=== PATIENT | male | born 1945 | race Caucasian/White ===

== ENCOUNTER 2016-09-04 19:51 | Emergency (ER) | payer MEDICARE ==
[2016-09-04 20:02] VITALS: BP 124/69; PULSE 63; RESP 18; TEMP 97.4
--- NOTE | 2016-09-04 21:00 | ED ---
Fall HPI - General Chief Complaint: Fall Stated Complaint: Dr. Muhammad-US on legs Time Seen by Provider: 09/04/16 20:09 Source: patient, RN notes reviewed Mode of arrival: ambulatory - History of Present Illness Initial Comments: Patient is a 71-year-old male presents emergency room for evaluation of left hip pain, swelling and bruising. Patient states on he was on bleachers in [facility] and slipped and fell landing on his left side. 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 Patient states that he noticed bruising and swelling on the posterior portion of his upper leg. Patient does state that he is on Coumadin for the past 3 months. Patient states he went to [facility] and advised that he come to the emergency room for further evaluation. Patient states he has pain whenever he walks or moves his left hip. Patient says he numbness or tingling in his toes. Patient states he noticed swelling in his left foot. Patient denies any significant pain going down his leg besides his hip. Patient denies any other injuries during incident. - Related Data Home Medications Medication Instructions Recorded Confirmed Aspirin 81 mg PO DAILY 12/17/13 01/02/14 Atorvastatin Calcium [Lipitor] 5 mg PO DAILY 12/17/13 01/02/14 Furosemide [Lasix] 40 mg PO DIRECTED 12/17/13 01/02/14 Lisinopril [Prinivil] 10 mg PO DAILY 12/17/13 01/02/14 Metoprolol Tartrate [Lopressor] 25 mg PO BID 12/17/13 01/02/14 Sotalol HCl [Sotalol] 160 mg PO BID 12/17/13 01/02/14 Spironolactone [Aldactone] 25 mg PO DAILY 12/17/13 01/02/14 Previous Rx's Medication Instructions Recorded Cephalexin [Keflex] 500 mg PO Q6HR #40 cap 01/02/14 Hydrocodone/Acetaminophen 1 each PO Q4HR PRN #20 tablet 01/02/14 [Hydrocodone/Acetaminophen 5-325] Indomethacin [Indocin] 50 mg PO ONCE #24 capsule 01/02/14 HYDROcodone/APAP 5-325MG [[place] 1 tab PO Q6HR PRN #12 tab 09/04/16 5-325] Allergies Allergy/AdvReac Type Severity Reaction Status Date / Time No Known Allergies Allergy Verified 09/04/16 20:03 Review of Systems ROS Statement: Those systems with pertinent positive or pertinent negative responses have been documented in the HPI. ROS Other: All systems not noted in ROS Statement are negative. Past Medical History Past Medical History: Cancer, Heart Failure Additional Past Medical History / Comment(s): SKIN CA, SEE DR GEE H&P History of Any Multi-Drug Resistant Organisms: None Reported Past Surgical History: Heart Catheterization, Orthopedic Surgery Additional Past Surgical History / Comment(s): PYLORIC STENOSIS REPAIR, Past Anesthesia/Blood Transfusion Reactions: No Reported Reaction Type of Cardiac Device: Unknown Device Placement Date:: UNKNOWN Past Psychological History: No Psychological Hx Reported Smoking Status: Former smoker Past Alcohol Use History: Rare Past Drug Use History: None Reported General Exam - General Exam Comments Initial Comments: Sitting in exam room in no acute distress. Limitations: no limitations General appearance: alert, in no apparent distress Head exam: Present: atraumatic, normocephalic, normal inspection Eye exam: Present: normal appearance ENT exam: Present: normal exam Neck exam: Present: normal inspection Respiratory exam: Present: normal lung sounds bilaterally. Absent: respiratory distress Cardiovascular Exam: Present: regular rate, normal rhythm, normal heart sounds Left Hip exam: Present: swelling, ecchymosis (Swelling and ecchymosis on lateral hip/ proximal lateral femur.) Upper Leg exam: Present: ecchymosis (Mild amount of ecchymosis of lateral upper leg) Knee exam: Present: normal inspection, full ROM. Absent: tenderness Lower Leg exam: Present: normal inspection, full ROM. Absent: tenderness Ankle exam: Present: normal inspection, full ROM. Absent: tenderness Foot/Toe exam: Present: swelling Neurovascular tendon exam: Present: no vascular compromise. Absent: pulse deficit (2+ dorsal pedal and posterior tibial pulses), abnormal cap refill ( Capillary refill less than 2 seconds) Back exam: Present: normal inspection Neurological exam: Present: alert, oriented X3, CN II-XII intact Psychiatric exam: Present: normal affect, normal mood Skin exam: Present: warm, dry. Absent: rash Course Vital Signs 09/04/16 19:53 Temperature 97.4 F L Pulse Rate 63 Respiratory 18 Rate Blood Pressure 124/69 O2 Sat by Pulse 98 Oximetry Medical Decision Making - Medical Decision Making Patient is a 71-year-old male presents emergency room for evaluation of fall injury on left hip. Patient does have ecchymosis noted on the lateral side of the proximal upper leg. X-rays show no acute findings. Left lower extremity venous Doppler negative for DVT. Patient will be sent home with pain medications and advised to follow-up with primary care provider for reevaluation. Advised patient to continue elevating leg. Patient states he understands everything that was discussed with him. Return parameters discussed. Case discussed with Dr. Hernandez. - Radiology Data Radiology results: report reviewed, image reviewed Disposition Clinical Impression: Contusion of left hip, Fall Disposition: HOME SELF-CARE Condition: Good Instructions: Hip Contusion (ED) Additional Instructions: Take pain medications as needed. Please follow up with primary care provider in 24-48 hours for reevaluation. Elevate left leg as much as possible. Apply ice 20 minutes on and off. If any new symptom arises or symptoms worsen, return to ER as soon as possible. Prescriptions: HYDROcodone/APAP 5-325MG [[place] 5-325] 1 tab PO Q6HR PRN #12 tab PRN Reason: Pain Referrals: Cherise Duran MD [Primary Care Provider] - 1-2 days Time of Disposition: 22:28
--- NOTE | 2016-09-04 21:24 | XR ---
EXAMINATION TYPE: XR femur LT DATE OF EXAM: 09/04/2016 9:12 PM COMPARISON: NONE HISTORY: Pain TECHNIQUE: 3 views FINDINGS: I see no fracture nor dislocation. Hip joint and knee joint are intact. There is spurring a t the medial and lateral joint spaces of the knee. IMPRESSION: No fracture. Mild osteoarthritis in the knee joint.
--- NOTE | 2016-09-04 21:25 | XR ---
EXAMINATION TYPE: XR Hip Complete LT DATE OF EXAM: 09/04/2016 9:12 PM COMPARISON: NONE HISTORY: Fall TECHNIQUE: 2 views FINDINGS: AP and frog-leg views show no fracture nor dislocation. Hip joint spaces are fairly normal. Sacroiliac joint is normal. IMPRESSION: Negative left hip exam.
--- NOTE | 2016-09-04 21:55 | US ---
EXAMINATION TYPE: US venous doppler duplex LE LT DATE OF EXAM: 09/04/2016 9:50 PM COMPARISON: NONE CLINICAL HISTORY: Pain. Patient tripped x4 days ago. Pain and bruising left leg SIDE PERFORMED: Left VESSELS IMAGED: External Iliac Vein (EIV) Common Femoral Vein Deep Femoral Vein Greater Saphenous Vein * Femoral Vein Popliteal Vein Small Saphenous Vein * Proximal Calf Veins (* superficial vessels) TECHNOLOGIST IMPRESSION: Left Leg: Negative for DVT IMPRESSION: Normal exam. No evidence of deep venous thrombosis in the left leg.
[2016-09-04] MEDS ORDERED: HYDROcodone/APAP 5-325MG 1 EACH TAB PO STA (22:15)
== END 2016-09-04 22:48 | disposition home or self-care (01) ==
LOC: EC 19:51
DX: S70.02XA Contusion of left hip, initial encounter (principal); W10.9XXA Fall (on) (from) unspecified stairs and steps, initial encounter; I50.9 Heart failure, unspecified; Y92.89 Other specified places as the place of occurrence of the external cause; Z79.01 Long term (current) use of anticoagulants; M19.072 Primary osteoarthritis, left ankle and foot; Z79.82 Long term (current) use of aspirin; Z79.899 Other long term (current) drug therapy; Z85.828 Personal history of other malignant neoplasm of skin
CPT/HCPCS: 73502; 99284

== ENCOUNTER 2017-04-01 14:17 | Emergency (ER) | payer MEDICARE ==
[2017-04-01 14:59] VITALS: BP 110/63; PULSE 65; RESP 18; TEMP 98.2
[2017-04-01] MEDS ORDERED: GELATIN SPONGE,ABSORB (SMALL) 1 EACH SPONGE TOPICAL STA (16:12)
[2017-04-01] MEDS ORDERED: ceFAZolin 1,000 MG VIAL IM STA (16:34)
--- NOTE | 2017-04-01 16:41 | ED ---
Medical Decision Making - Medical Decision Making The patient causing extensive laceration on the dorsal surface of his nondominant left thumb. Laceration extends from the MCP joint to the area just below the thumb nail. This does appear to involve the extensor tendon. The patient is on Coumadin. Pressure was applied and Gelfoam was used to control the bleeding. The case discussed with Dr. Jovanny aguiar PHYSICIAN'S assistant education director on -call. The plant this size for the patient to follow up in office tomorrow to call at 8 AM. Nothing by mouth after midnight. He'll receive in the emergency room 1 g of Ancef area he'll be on oral Keflex afterwards. Advised not to take his Coumadin tonight or tomorrow morning when he normally takes it. The wound has been cleaned will be dressed, due to the extensor tendon injury the wound will be loosely approximated with bandages but not sutured closed. This be done by the hand surgeon after evaluation. Dr. Wagner Disposition Clinical Impression: Laceration Disposition: HOME SELF-CARE Condition: Good Instructions: Laceration Without Closure (ED) Additional Instructions: Keep thumb wrapped. Elevate right arm as much as possible. Continue pain medication as prescribed as needed for pain. Continue Keflex 500 mg 4 times daily for [address] Jassi Victoria at 8 AM tomorrow for further instructions. Please refrain from taking Coumadin today or tomorrow. Please return to the emergency department with any new or worsening symptoms such as uncontrolled bleeding, fevers, nausea, vomiting, dizziness, weakness, or increased pain. Prescriptions: Cephalexin [Keflex] 500 mg PO Q6HR #28 cap HYDROcodone/APAP 5-325MG [[place] 5-325] 1 tab PO Q4HR PRN #20 tab PRN Reason: Pain Referrals: Frank Cole DO [Doctor of Osteopathic Medicine] - 1-2 days (Call at 8 AM on 04/02/2017) Elpidio Scott DO [Primary Care Provider] - 1-2 days
[2017-04-01] MEDS ORDERED: HYDROcodone/APAP 5-325MG 1 EACH TAB PO STA (17:04)
--- NOTE | 2017-04-01 17:04 | ED ---
Wound/Laceration HPI - General Chief Complaint: Wound/Laceration Stated Complaint: Thumb Injury Time Seen by Provider: 04/01/17 16:12 Source: patient Mode of arrival: ambulatory Limitations: no limitations - History of Present Illness Initial Comments: Patient is a right-handed 71-year-old male with past medical history significant for congestive heart failure and permanent pacemaker implantation anticoagulated with Coumadin, presenting to the emergency department with chief complaint of left dorsal thumb laceration. Patient states he was out shooting with his crossbow when the string snapped back and lacerated his thumb. Onset of injury approximately one hour prior to arrival. Patient is currently complaining of a throbbing pain rated 7 out of 10. Patient denies numbness or tingling. Patient denies recent illness, fevers, nausea, vomiting, shortness of breath, chest pain, or abdominal pain. Patient denies weakness or dizziness. Patient denies any other injuries. Patient Tetanus UTD: Yes Context: accidental Associated Symptoms: pain Treatments Prior to Arrival: bandage - Related Data Home Medications Medication Instructions Recorded Confirmed Aspirin 81 mg PO DAILY 12/17/13 01/02/14 Atorvastatin Calcium [Lipitor] 5 mg PO DAILY 12/17/13 01/02/14 Furosemide [Lasix] 40 mg PO DIRECTED 12/17/13 01/02/14 Lisinopril [Prinivil] 10 mg PO DAILY 12/17/13 01/02/14 Metoprolol Tartrate [Lopressor] 25 mg PO BID 12/17/13 01/02/14 Sotalol HCl [Sotalol] 160 mg PO BID 12/17/13 01/02/14 Spironolactone [Aldactone] 25 mg PO DAILY 12/17/13 01/02/14 Previous Rx's Medication Instructions Recorded Cephalexin [Keflex] 500 mg PO Q6HR #40 cap 01/02/14 Hydrocodone/Acetaminophen 1 each PO Q4HR PRN #20 tablet 01/02/14 [Hydrocodone/Acetaminophen 5-325] Indomethacin [Indocin] 50 mg PO ONCE #24 capsule 01/02/14 HYDROcodone/APAP 5-325MG [[place] 1 tab PO Q6HR PRN #12 tab 09/04/16 5-325] Cephalexin [Keflex] 500 mg PO Q6HR #28 cap 04/01/17 HYDROcodone/APAP 5-325MG [[place] 1 tab PO Q4HR PRN #20 tab 04/01/17 5-325] Allergies Allergy/AdvReac Type Severity Reaction Status Date / Time No Known Allergies Allergy Verified 04/01/17 14:59 Review of Systems ROS Statement: Those systems with pertinent positive or pertinent negative responses have been documented in the HPI. ROS Other: All systems not noted in ROS Statement are negative. Past Medical History Past Medical History: Cancer, Heart Failure Additional Past Medical History / Comment(s): SKIN CA, SEE DR GEE H&P History of Any Multi-Drug Resistant Organisms: None Reported Past Surgical History: Heart Catheterization, Orthopedic Surgery Additional Past Surgical History / Comment(s): PYLORIC STENOSIS REPAIR, Past Anesthesia/Blood Transfusion Reactions: No Reported Reaction Type of Cardiac Device: Unknown Device Placement Date:: UNKNOWN Past Psychological History: No Psychological Hx Reported Smoking Status: Former smoker Past Alcohol Use History: Rare Past Drug Use History: None Reported General Exam Limitations: no limitations General appearance: alert, in no apparent distress Head exam: Present: atraumatic, normocephalic, normal inspection Eye exam: Present: normal appearance ENT exam: Present: normal exam, mucous membranes moist, normal external ear exam Neck exam: Present: normal inspection Respiratory exam: Present: normal lung sounds bilaterally. Absent: respiratory distress, wheezes, rales, rhonchi, chest wall tenderness Cardiovascular Exam: Present: regular rate, normal rhythm, normal heart sounds. Absent: systolic murmur GI/Abdominal exam: Present: soft, normal bowel sounds. Absent: distended, tenderness Left Forearm Wrist exam: Present: normal inspection, full ROM. Absent: tenderness, swelling Hand Wrist exam: Present: full ROM, tenderness, swelling, laceration ( Laceration extended from metatarsal joint to nailbed) Neuro motor exam: Present: wrist extension intact, thumb opposition intact, thumb IP flexion intact, thumb adduction intact, fingers 2-5 abduction intact Neurosensory exam: Present: 2-point discrimination, radial nerve intact, ulnar nerve intact, median nerve intact Vascular: Present: normal capillary refill, radial pulse, brachial pulse, ulnar pulse. Absent: vascular compromise Neurological exam: Present: alert, oriented X3, CN II-XII intact, normal gait. Absent: motor sensory deficit Psychiatric exam: Present: normal affect, normal mood Skin exam: Present: warm, dry, normal color Course Vital Signs 04/01/17 14:56 Temperature 98.2 F Pulse Rate 65 Respiratory 18 Rate Blood Pressure 110/63 O2 Sat by Pulse 93 L Oximetry Medical Decision Making - Medical Decision Making Please see Dr. Wagner's addendum. Disposition Clinical Impression: Laceration Disposition: HOME SELF-CARE Condition: Good Instructions: Laceration Without Closure (ED) Additional Instructions: Keep thumb wrapped. Elevate right arm as much as possible. Continue pain medication as prescribed as needed for pain. Continue Keflex 500 mg 4 times daily for [address] Jassi Victoria at 8 AM tomorrow for further instructions. Please refrain from taking Coumadin today or tomorrow. Please return to the emergency department with any new or worsening symptoms such as uncontrolled bleeding, fevers, nausea, vomiting, dizziness, weakness, or increased pain. Prescriptions: Cephalexin [Keflex] 500 mg PO Q6HR #28 cap HYDROcodone/APAP 5-325MG [[place] 5-325] 1 tab PO Q4HR PRN #20 tab PRN Reason: Pain Referrals: Elpidio Scott DO [Primary Care Provider] - 1-2 days Frank Cole DO [Doctor of Osteopathic Medicine] - 1-2 days (Call at 8 AM on 04/02/2017) Time of Disposition: 17:04
== END 2017-04-01 17:53 | disposition home or self-care (01) ==
LOC: EC 14:17
DX: S66.222A Laceration of extensor muscle, fascia and tendon of left thumb at wrist and hand level, initial encounter (principal); S61.012A Laceration without foreign body of left thumb without damage to nail, initial encounter; I50.9 Heart failure, unspecified; Z95.0 Presence of cardiac pacemaker; Z79.01 Long term (current) use of anticoagulants; Z79.82 Long term (current) use of aspirin; Z79.899 Other long term (current) drug therapy; Z87.891 Personal history of nicotine dependence; W21.89XA Striking against or struck by other sports equipment, initial encounter; Y93.89 Activity, other specified
CPT/HCPCS: 99282 ×2; 96372 ×2; J0690

== ENCOUNTER 2018-01-14 07:25 | Inpatient (IN) | payer MEDICARE ==
--- NOTE | 2018-01-14 07:46 | ED ---
General Adult HPI - General Chief complaint: Chest Pain Stated complaint: chest pain Time Seen by Provider: 01/14/18 07:32 Source: patient, RN notes reviewed, old records reviewed Mode of arrival: wheelchair Limitations: no limitations - History of Present Illness Initial comments: 72-year-old male presenting for evaluation of central chest pressure. Symptoms began proximally 6 hours prior to arrival. He describes central chest pressure , no significant pain. He does report some dyspnea while lying flat. He states he is asymptomatic while he is up and walking around. No exertional component to his symptoms. Denies radiating pain. Denies nausea vomiting. Denies diaphoresis. Patient does have history of cardiomyopathy and congestive heart failure. He is currently on Lasix every other day, sotalol, metoprolol, lisinopril, and Coumadin. Patient reports no known history of coronary artery disease. He has no coronary stenting. He does have an implantable defibrillator. Denies cough, denies fever or chills, denies abdominal pain nausea vomiting. Patient denies chest pain at the time my evaluation. - Related Data Home Medications Medication Instructions Recorded Confirmed Aspirin 81 mg PO DAILY 12/17/13 01/14/18 Atorvastatin Calcium [Lipitor] 5 mg PO DAILY 12/17/13 01/14/18 Furosemide [Lasix] 40 mg PO MOWEFR 12/17/13 01/14/18 Lisinopril [Prinivil] 10 mg PO DAILY 12/17/13 01/14/18 Metoprolol Tartrate [Lopressor] 25 mg PO BID 12/17/13 01/14/18 Sotalol HCl [Sotalol] 160 mg PO BID 12/17/13 01/14/18 Spironolactone [Aldactone] 25 mg PO DAILY 12/17/13 01/14/18 Warfarin [Coumadin] 2.5 mg PO MOWEFR 01/14/18 01/14/18 Warfarin [Coumadin] 5 mg PO SUTUTHSA 01/14/18 01/14/18 Allergies Allergy/AdvReac Type Severity Reaction Status Date / Time No Known Allergies Allergy Verified 01/14/18 07:52 Review of Systems ROS Statement: Those systems with pertinent positive or pertinent negative responses have been documented in the HPI. ROS Other: All systems not noted in ROS Statement are negative. Past Medical History Past Medical History: Cancer, Chest Pain / Angina, Heart Failure, Myocardial Infarction ([place]) Additional Past Medical History / Comment(s): SKIN CA, SEE DR GEE H&P History of Any Multi-Drug Resistant Organisms: None Reported Past Surgical History: Heart Catheterization, Orthopedic Surgery Additional Past Surgical History / Comment(s): PYLORIC STENOSIS REPAIR, Past Anesthesia/Blood Transfusion Reactions: No Reported Reaction Type of Cardiac Device: Unknown Device Placement Date:: UNKNOWN Past Psychological History: No Psychological Hx Reported Smoking Status: Former smoker Past Alcohol Use History: Rare Past Drug Use History: None Reported General Exam Limitations: no limitations General appearance: alert, in no apparent distress Head exam: Present: atraumatic, normocephalic Eye exam: Present: normal appearance, PERRL ENT exam: Present: normal exam Neck exam: Present: normal inspection. Absent: tenderness, meningismus Respiratory exam: Present: normal lung sounds bilaterally. Absent: respiratory distress Cardiovascular Exam: Present: regular rate, normal rhythm GI/Abdominal exam: Present: soft. Absent: distended, tenderness, guarding Extremities exam: Present: normal inspection, normal capillary refill, pedal edema (Trace pedal edema) Neurological exam: Present: alert, oriented X3, CN II-XII intact. Absent: motor sensory deficit Psychiatric exam: Present: normal affect, normal mood Skin exam: Present: warm, dry, intact. Absent: cyanosis, diaphoretic Course Vital Signs 01/14/18 01/14/18 07:29 08:30 Temperature 97.8 F Pulse Rate 65 55 L Respiratory 18 16 Rate Blood Pressure 120/76 123/66 O2 Sat by Pulse 96 99 Oximetry - Reevaluation(s) Reevaluation #1: 01/14/18 09:15 Case discussed with cardiology, will admit for serial cardiac enzymes and evaluation. EKG Findings - EKG Comments: EKG Findings:: EKG: Sinus rhythm with first-degree AV block, left axis deviation , left bundle branch block, rate of 62, NH interval 224, QRS duration 152, QTC 495, no ST segment elevation Medical Decision Making - Medical Decision Making 72-year-old male presenting with central chest pressure. Patient is asymptomatic at the time my evaluation. Symptoms were present for approximately 6 hours prior to arrival. Patient also describes an episode of confusion when he is falling asleep. He states he then feels the chest pressure. Uncertain if this may be related to some anxiety. Patient's EKG does show a left bundle branch block, there is no recent EKG for comparison. Chest x-ray negative for venous congestion or pulmonary edema. Laboratory studies reveal normal white blood cell count, stable hemoglobin, INR is therapeutic at 2.1. BNP mildly elevated 1400. Troponin is 0.021. Patient is artery anticoagulated on Coumadin. He will be kept for serial cardiac enzymes and cardiology consultation. - Lab Data Result diagrams: 01/14/18 07:50 01/14/18 07:50 Lab Results 01/14/18 01/14/18 01/14/18 Range/Units 07:50 07:50 07:50 WBC 5.8 (3.8-10.6) k/uL RBC 4.71 (4.30-5.90) m/uL Hgb 13.7 (13.0-17.5) gm/dL Hct 42.3 (39.0-53.0) % MCV 89.7 (80.0-100.0) fL MCH 29.1 (25.0-35.0) pg MCHC 32.4 (31.0-37.0) g/dL RDW 13.4 (11.5-15.5) % Plt Count 165 (150-450) k/uL Neutrophils % 58 % Lymphocytes % 27 % Monocytes % 9 % Eosinophils % 2 % Basophils % 1 % Neutrophils # 3.4 (1.3-7.7) k/uL Lymphocytes # 1.6 (1.0-4.8) k/uL Monocytes # 0.5 (0-1.0) k/uL Eosinophils # 0.1 (0-0.7) k/uL Basophils # 0.0 (0-0.2) k/uL PT (9.0-12.0) sec INR (<1.2) APTT (22.0-30.0) sec Sodium 139 (137-145) mmol/L Potassium 4.7 (3.5-5.1) mmol/L Chloride 105 (98-107) mmol/L Carbon Dioxide 27 (22-30) mmol/L Anion Gap 7 mmol/L BUN 21 H (9-20) mg/dL Creatinine 0.87 (0.66-1.25) mg/dL Est GFR (CKD-EPI)AfAm >90 (>60 ml/min/1.73 sqM) Est GFR (CKD-EPI)NonAf 85 (>60 ml/min/1.73 sqM) Glucose 160 H (74-99) mg/dL Calcium 9.0 (8.4-10.2) mg/dL Magnesium 2.1 (1.6-2.3) mg/dL Total Bilirubin 0.8 (0.2-1.3) mg/dL AST 25 (17-59) U/L ALT 29 (21-72) U/L Alkaline Phosphatase 63 (38-126) U/L Total Creatine Kinase 168 (55-170) U/L CK-MB (CK-2) 3.7 H* (0.0-2.4) ng/mL CK-MB (CK-2) Rel Index 2.2 Troponin I 0.021 (0.000-0.034) ng/mL NT-Pro-B Natriuret Pep pg/mL Total Protein 5.7 L (6.3-8.2) g/dL Albumin 3.4 L (3.5-5.0) g/dL 01/14/18 01/14/18 Range/Units 07:50 07:50 WBC (3.8-10.6) k/uL RBC (4.30-5.90) m/uL Hgb (13.0-17.5) gm/dL Hct (39.0-53.0) % MCV (80.0-100.0) fL MCH (25.0-35.0) pg MCHC (31.0-37.0) g/dL RDW (11.5-15.5) % Plt Count (150-450) k/uL Neutrophils % % Lymphocytes % % Monocytes % % Eosinophils % % Basophils % % Neutrophils # (1.3-7.7) k/uL Lymphocytes # (1.0-4.8) k/uL Monocytes # (0-1.0) k/uL Eosinophils # (0-0.7) k/uL Basophils # (0-0.2) k/uL PT 19.1 H (9.0-12.0) sec INR 2.1 H (<1.2) APTT 29.7 (22.0-30.0) sec Sodium (137-145) mmol/L Potassium (3.5-5.1) mmol/L Chloride (98-107) mmol/L Carbon Dioxide (22-30) mmol/L Anion Gap mmol/L BUN (9-20) mg/dL Creatinine (0.66-1.25) mg/dL Est GFR (CKD-EPI)AfAm (>60 ml/min/1.73 sqM) Est GFR (CKD-EPI)NonAf (>60 ml/min/1.73 sqM) Glucose (74-99) mg/dL Calcium (8.4-10.2) mg/dL Magnesium (1.6-2.3) mg/dL Total Bilirubin (0.2-1.3) mg/dL AST (17-59) U/L ALT (21-72) U/L Alkaline Phosphatase (38-126) U/L Total Creatine Kinase (55-170) U/L CK-MB (CK-2) (0.0-2.4) ng/mL CK-MB (CK-2) Rel Index Troponin I (0.000-0.034) ng/mL NT-Pro-B Natriuret Pep 1400 pg/mL Total Protein (6.3-8.2) g/dL Albumin (3.5-5.0) g/dL Disposition Clinical Impression: Chest pain, CHF (congestive heart failure) Disposition: ADMITTED IP TO THIS HOSP Condition: Stable Is patient prescribed a controlled substance at d/c from ED?: No Referrals: Elpidio Scott DO [Primary Care Provider] - 1-2 days Time of Disposition: 09:30
[2018-01-14 08:07] LABS: Basophils % (A) 1 %; Eosinophils # (A) 0.1 k/uL (0-0.7); Eosinophils % (A) 2 %; HCT 42.3 % (39.0-53.0); HGB 13.7 gm/dL (13.0-17.5); Lymphocytes # (A) 1.6 k/uL (1.0-4.8); Lymphocytes % (A) 27 %; MCH 29.1 pg (25.0-35.0); MCHC 32.4 g/dL (31.0-37.0); MCV 89.7 fL (80.0-100.0); Mean Platelet Volume 6.9; Monocytes # (A) 0.5 k/uL (0-1.0); Monocytes % (A) 9 %; Neutrophils # (A) 3.4 k/uL (1.3-7.7); Neutrophils % (A) 58 %; Platelet Count 165 k/uL (150-450); RBC 4.71 m/uL (4.30-5.90); RDW 13.4 % (11.5-15.5); WBC 5.8 k/uL (3.8-10.6)
--- NOTE | 2018-01-14 08:15 | XR ---
EXAMINATION TYPE: XR chest 2V DATE OF EXAM: 01/14/2018 COMPARISON: 09/28/10 HISTORY: Chest pain and sob TECHNIQUE: Frontal and lateral views of the chest are obtained. FINDINGS: Minimal chronic bibasilar atelectasis is seen. Dual lead left-sided cardiac device and car diomegaly is redemonstrated. There is no new focal air space opacity, pleural effusion, or pneumothor ax seen. The osseous structures are intact. IMPRESSION: Chronic changes with no acute cardiopulmonary process.
[2018-01-14 08:17] LABS: INR 2.1 (<1.2); Partial Thromboplastin Time 29.7 sec (22.0-30.0); Prothrombin Time 19.1 sec (9.0-12.0)
[2018-01-14 08:22] LABS: ALT 29 U/L (21-72); AST 25 U/L (17-59); Albumin 3.4 g/dL (3.5-5.0); Alkaline Phosphatase 63 U/L (38-126); Anion Gap 7 mmol/L; Blood Urea Nitrogen 21 mg/dL (9-20); Carbon Dioxide 27 mmol/L (22-30); Chloride 105 mmol/L (98-107); Glucose 160 mg/dL (74-99); Magnesium 2.1 mg/dL (1.6-2.3); Potassium 4.7 mmol/L (3.5-5.1); Sodium 139 mmol/L (137-145); Total Bilirubin 0.8 mg/dL (0.2-1.3); Total Protein 5.7 g/dL (6.3-8.2)
[2018-01-14] MEDS ORDERED: FUROSEMIDE 10 MG/ML 2 ML VIAL IV STA (08:55)
[2018-01-14] MEDS ORDERED: ASPIRIN 325 MG TAB PO STA (08:55)
[2018-01-14 09:00] LABS: Troponin I 0.021 ng/mL (0.000-0.034)
[2018-01-14 09:05] LABS: Creatine Kinase MB 3.7 ng/mL (0.0-2.4)
[2018-01-14] MEDS ORDERED: ACETAMINOPHEN TAB 325 MG TAB PO PRN (09:23)
[2018-01-14] MEDS ORDERED: MORPHINE SULFATE 4 MG/ML SYRINGE IV PRN (09:23)
[2018-01-14] MEDS ORDERED: NALOXONE 0.4 MG/ML 1 ML VIAL IV PRN (09:23)
[2018-01-14 12:56] LABS: Troponin I 0.012 ng/mL (0.000-0.034)
[2018-01-14 13:05] LABS: Creatine Kinase MB 4.1 ng/mL (0.0-2.4)
--- NOTE | 2018-01-14 13:34 | CONS ---
CONSULTATION Mr. Cardenas is a 72-year-old male with known history of nonischemic cardiomyopathy, paroxysmal fibrillation, history of ventricular tachycardia, status post PVCs ablation and status post dual ICD implant who was underwent cardiac catheterization in 2009 that revealed no evidence of obstructive coronary disease, who presented to the hospital with symptoms of chest discomfort and dyspnea that occurred last night on and off. He had similar symptoms in the past which usually do not last that much. He denies any associated dizziness, palpitation. He had no syncope. He has some peripheral edema. He has no PND, no orthopnea. His level activity has been stable. His has mild chronic dyspnea on exertion without any significant changes. His coronary risk factors are positive for hypertension, hyperlipidemia. He is nondiabetic, non smoker. MEDICATIONS: Include Coumadin, spironolactone 25 mg daily, sotalol 160 mg twice a day, metoprolol tartrate 25 mg twice a day, Prinivil 10 mg daily, Lasix 5 times a week and Lipitor 5 mg daily, aspirin 81 mg daily. REVIEW OF SYSTEMS: RESPIRATORY SYSTEM: Has mild dyspnea on exertion, but no recent cough or wheezing. GI SYSTEM: No recent GI bleeding. No peptic ulcer disease. SYSTEM: No dysuria or hematuria. NERVOUS SYSTEM: No stroke or seizure. Patient says there is no episode of noncompliance with salt intake in the recent past. In the past, he had an echocardiogram and nuclear scan. Ejection fraction was in the 25-30%. PHYSICAL EXAMINATION: He is a 72-year-old male, alert, oriented, in no apparent distress. Blood pressure 118/60 with a heart in 60s. HEAD: Normocephalic. EYES: Sclerae anicteric. NECK: Good upstroke. No bruit. LUNGS: Clear to auscultation. HEART: Regular rate and rhythm. S1, S2. No S3 with systolic ejection murmur 2/6 heard at the base. No diastolic murmur. ABDOMEN: Soft, nontender. Positive bowel sounds. No organomegaly. EXTREMITIES: +1 edema bilaterally. LAB DATA: INR of 2.1, BUN and creatinine 21 and 0.87. NT proBNP 1400. Troponin 0.021. Hemoglobin 13.7, white blood cell of 5.8. EKG revealed a sinus mechanism with a left bundle branch block and a first-degree AV block and left axis deviation. Chest x-ray shows no acute infiltrate. IMPRESSION: 1. Symptoms of progressive dyspnea and chest discomfort, probably exacerbation of fluid overload in a patient known history of nonischemic cardiomyopathy. I do not feel that we are dealing with an episode of acute coronary syndrome. 2. History of paroxysmal atrial fibrillation. 3. Status post VT ablation. 4. Hyperlipidemia. RECOMMENDATION: Will obtain echocardiogram with Doppler to evaluate the left ventricular systolic function. I will put him on IV Lasix for 24 hours, resume the rest of his medical regimen and depending on his progress further recommendation will be made. Thank you for this consult. We will follow with you. MMEMELIAL / IJN: [id number] /
--- NOTE | 2018-01-14 14:25 | P.HPIM ---
History of Present Illness 68-year-old pleasant gentleman came in with her chest pressure like sensation which lasted which is started last night, moderate pressure like sensation along with lightheadedness denied and diaphoresis nonpleuritic in nature pressure-like sensation lasted for 6 hours constant nonradiating no associated diaphoresis. Patient does have a history of nonischemic cardiomyopathy. Patient has an AICD. Patient denied any nausea vomiting. Patient denied any chest pain now which completely resolved. Patient does have history of atrial fibrillation on Coumadin therapy can INR Review of Systems REVIEW OF SYSTEMS: CONSTITUTIONAL: No fever, no malaise, no fatigue. HEENT: No recent visual problems or hearing problems. Denied any sore throat. CARDIOVASCULAR: No orthopnea, PND, no palpitations, no syncope. PULMONARY: No shortness of breath, no cough, no hemoptysis. GASTROINTESTINAL: No diarrhea, no nausea, no vomiting, no abdominal pain. Normoactive bowel sounds. NEUROLOGICAL: No headaches, no weakness, no numbness. HEMATOLOGICAL: Denies any bleeding or petechiae. GENITOURINARY: Denies any burning micturition, frequency, or urgency. MUSCULOSKELETAL/RHEUMATOLOGICAL: Denies any joint pain, swelling, or any muscle pain. ENDOCRINE: Denies any polyuria or polydipsia. The rest of the 14-point review of systems is negative. Past Medical History Past Medical History: Cancer, Chest Pain / Angina, Heart Failure, Myocardial Infarction (OR) Additional Past Medical History / Comment(s): SKIN CA, SEE DR GEE H&P History of Any Multi-Drug Resistant Organisms: None Reported Past Surgical History: Heart Catheterization, Orthopedic Surgery Additional Past Surgical History / Comment(s): PYLORIC STENOSIS REPAIR, Past Anesthesia/Blood Transfusion Reactions: No Reported Reaction Type of Cardiac Device: Unknown Device Placement Date:: UNKNOWN Past Psychological History: No Psychological Hx Reported Smoking Status: Former smoker Past Alcohol Use History: Rare Past Drug Use History: None Reported Medications and Allergies Home Medications Medication Instructions Recorded Confirmed Type Aspirin 81 mg PO DAILY 12/17/13 01/14/18 History Atorvastatin Calcium [Lipitor] 5 mg PO DAILY 12/17/13 01/14/18 History Furosemide [Lasix] 40 mg PO MOWEFR 12/17/13 01/14/18 History Lisinopril [Prinivil] 10 mg PO DAILY 12/17/13 01/14/18 History Metoprolol Tartrate [Lopressor] 25 mg PO BID 12/17/13 01/14/18 History Sotalol HCl [Sotalol] 160 mg PO BID 12/17/13 01/14/18 History Spironolactone [Aldactone] 25 mg PO DAILY 12/17/13 01/14/18 History Warfarin [Coumadin] 2.5 mg PO MOWEFR 01/14/18 01/14/18 History Warfarin [Coumadin] 5 mg PO SUTUTHSA 01/14/18 01/14/18 History Allergies Allergy/AdvReac Type Severity Reaction Status Date / Time No Known Allergies Allergy Verified 01/14/18 07:52 Physical Exam Vitals: Vital Signs Temp Pulse Resp BP Pulse Ox 01/14/18 12:13 104 H 16 118/56 99 01/14/18 11:00 58 L 16 114/75 100 01/14/18 08:30 55 L 16 123/66 99 01/14/18 07:29 97.8 F 65 18 120/76 96 Intake and Output 01/13/18 01/14/18 01/14/18 22:59 06:59 14:59 Other: Weight 86.183 kg PHYSICAL EXAMINATION: GENERAL: The patient is alert and oriented x3, not in any acute distress. Well developed, well nourished. HEENT: Pupils are round and equally reacting to light. EOMI. No scleral icterus. No conjunctival pallor. Normocephalic, atraumatic. No pharyngeal erythema. No thyromegaly. CARDIOVASCULAR: S1 and S2 present. No murmurs, rubs, or gallops. PULMONARY: Chest is clear to auscultation, no wheezing or crackles. ABDOMEN: Soft, nontender, nondistended, normoactive bowel sounds. No palpable organomegaly. MUSCULOSKELETAL: No joint swelling or deformity. EXTREMITIES: No cyanosis, clubbing, or pedal edema. NEUROLOGICAL: Gross neurological examination did not reveal any focal deficits. SKIN: No rashes. Results CBC & Chem 7: 01/14/18 07:50 01/14/18 07:50 Labs: Abnormal Lab Results - Last 24 Hours (Table) 01/14/18 01/14/18 01/14/18 Range/Units 07:50 07:50 07:50 PT 19.1 H (9.0-12.0) sec INR 2.1 H (<1.2) BUN 21 H (9-20) mg/dL Glucose 160 H (74-99) mg/dL CK-MB (CK-2) 3.7 H* (0.0-2.4) ng/mL Total Protein 5.7 L (6.3-8.2) g/dL Albumin 3.4 L (3.5-5.0) g/dL 01/14/ Range/Units 11:53 PT (9.0-12.0) sec INR (<1.2) BUN (9-20) mg/dL Glucose (74-99) mg/dL CK-MB (CK-2) 4.1 H* (0.0-2.4) ng/mL Total Protein (6.3-8.2) g/dL Albumin (3.5-5.0) g/dL Assessment and Plan Plan: Chest pain: Patient had 2 sets of troponins patient had recent the stress test that was negative. Will monitor overnight with another set of troponin possibility of discharge tomorrow back cardiology evaluation patient chest pain is probably noncardiac although etiology is not clear at this time for me. -Nonischemic cardiomyopathy, chronic systolic dysfunction without any acute exacerbation patient has a a defibrillator in place patient is euvolemic at this time will continue his home medications. -Atrial fibrillation presently rate controlled -Status post VT ablation -Hyperlipidemia
--- NOTE | 2018-01-14 16:14 | ECHOF ---
Referral Reason:cm MEASUREMENTS -------- HEIGHT: 172.7 cm WEIGHT: 86.2 kg BP: IVSd: 1.2 cm (0.6 - 1.1) LVIDd: 5.8 cm (3.9 - 5.3) LVPWd: 1.4 cm (0.6 - 1.1) IVSs: 1.5 cm LVIDs: 5.0 cm LVPWs: 1.2 cm Ao Diam: 3.3 cm (2.0 - 3.7) AV Cusp: 1.9 cm (1.5 - 2.6) LA Diam: 3.1 cm (2.7 - 3.8) EPSS: 3.6 cm MV E Jimbo: 0.66 m/s MV DecT: 233 ms MV A Jimbo: 0.75 m/s MV E/A Ratio: 0.87 AR PHT: 357 ms RAP: 5.00 mmHg RVSP: 9.16 mmHg MV EF SLOPE: 63.79 mm/s (70 - 150) MV EXCURSION: 1.87 cm (> 18.000) FINDINGS -------- Sinus rhythm. AICD This was a technically good study. The left ventricular size is normal. Left ventricular wall thickness is normal. Overall left vent ricular systolic function is severely impaired with, an EF between 20 - 25 %. The right ventricle is normal in size. The left atrium is normal in size. The right atrium is normal in size. The aortic valve is trileaflet, and appears structurally normal. No aortic stenosis or regurgitation. There is mild aortic regurgitation. Mild mitral regurgitation is present. Mild tricuspid regurgitation present. The right ventricular systolic pressure, as measured by Doppl er, is 9.16mmHg. Pulmonic valve appears structurally normal. The aortic root size is normal. The pericardium is normal. CONCLUSIONS -------- 1. Sinus rhythm. 2. AICD 3. This was a technically good study. 4. The left ventricular size is normal. 5. Left ventricular wall thickness is normal. 6. Overall left ventricular systolic function is severely impaired with, an EF between 20 - 25 %. 7. The right ventricle is normal in size. 8. The left atrium is normal in size. 9. The right atrium is normal in size. 10. The aortic valve is trileaflet, and appears structurally normal. No aortic stenosis or regurgitat ion. 11. There is mild aortic regurgitation. 12. Mild mitral regurgitation is present. 13. Mild tricuspid regurgitation present. 14. The right ventricular systolic pressure, as measured by Doppler, is 9.16mmHg. 15. Pulmonic valve appears structurally normal. 16. The aortic root size is normal. 17. The pericardium is normal. [employer]: Esme Penaloza RDCS
[2018-01-14 17:51] VITALS: RESP 18
[2018-01-14] MEDS ORDERED: WARFARIN 2.5 MG TAB PO SCH (18:00)
[2018-01-14] MEDS: SOTALOL 80 MG TAB PO SCH (20:50)
[2018-01-14] MEDS: METOPROLOL TARTRATE 25 MG TAB PO SCH (20:50)
[2018-01-14] MEDS: FUROSEMIDE 10 MG/ML 2 ML VIAL IV SCH (20:50)
[2018-01-14 21:21] LABS: Troponin I 0.012 ng/mL (0.000-0.034)
[2018-01-14 21:26] LABS: Creatine Kinase MB 3.1 ng/mL (0.0-2.4)
[2018-01-14] MEDS ORDERED: MELATONIN 5 MG TABLET PO SCH (21:45)
[2018-01-15 06:39] LABS: INR 2.6 (<1.2); Prothrombin Time 23.7 sec (9.0-12.0)
[2018-01-15 06:59] LABS: Anion Gap 5 mmol/L; Blood Urea Nitrogen 21 mg/dL (9-20); Calcium 9.1 mg/dL (8.4-10.2); Carbon Dioxide 32 mmol/L (22-30); Chloride 101 mmol/L (98-107); Glucose 136 mg/dL (74-99); Sodium 138 mmol/L (137-145)
[2018-01-15] MEDS: FUROSEMIDE 10 MG/ML 2 ML VIAL IV SCH (08:44)
[2018-01-15] MEDS: METOPROLOL TARTRATE 25 MG TAB PO SCH (08:44)
[2018-01-15] MEDS: SOTALOL 80 MG TAB PO SCH (08:45)
[2018-01-15] MEDS ORDERED: ATORVASTATIN 10 MG TAB PO SCH (09:00)
[2018-01-15] MEDS ORDERED: SPIRONOLACTONE 25 MG TAB PO SCH (09:00)
[2018-01-15] MEDS ORDERED: ASPIRIN 81 MG PO SCH (09:00)
[2018-01-15] MEDS ORDERED: LISINOPRIL 10 MG TAB PO SCH (09:00)
--- NOTE | 2018-01-15 11:32 | PN ---
PROGRESS NOTE Mr. Cardenas is a 72-year-old male with a known history of nonischemic cardiomyopathy who presented with symptoms of dyspnea and chest discomfort. He is feeling much better today, his breathing is stable. He denies any symptoms of chest pain. He denies any dizziness, palpitation. He denies any nausea. He has been ambulating without much difficulty. He had underwent an echocardiogram that showed ejection fraction of 20% to 25% with mild mitral and tricuspid regurgitation. He continues to be at this time on aspirin once a day Lipitor 5 mg daily, Lasix 20 mg IV q.12 hours, lisinopril 10 mg daily, metoprolol tartrate 25 mg twice a day, sotalol 160 mg twice a day, spironolactone 25 mg daily in addition to his Coumadin. PHYSICAL EXAMINATION: Blood pressure 110/50 with a heart rate in the 60s. LUNGS: Clear. HEART: S1, S2 with systolic murmur, no diastolic murmur. No rub. ABDOMEN: Soft, nontender. EXTREMITIES: No edema. LAB DATA: BUN and creatinine 21 and 0.9, potassium 4.0, INR of 2.6. Troponin less than 0.012. IMPRESSION: 1. Episode of dyspnea with mild exacerbation of chronic obstructive pulmonary disease in a patient known history of severe nonischemic cardiomyopathy. 2. Chest pain with no evidence of obstructive coronary artery disease. 3. Prior history of atrial fibrillation. 4. History of ventricular tachycardia ablation. RECOMMENDATION: From the cardiac standpoint, I will switch him to oral diuretics, increase his level activity. He should be able to be discharged home today and follow as an outpatient. Will resume the dose of his oral diuretics at home. MMODL / IJN: [id number] /
--- NOTE | 2018-01-15 11:53 | CDI ---
Last Revision, May 2017 Documentation Clarification Form Date: 01/15/2018 11:40:00 AM From: Juliet Abel CCS, CCDS Admit Date: 01/14/2018 9:32:00 AM Patient Name: Sang Cardenas Visit Number: [id number] Discharge Date: ATTENTION: The Clinical Documentation Specialists (CDI) and [facility] Coding Staff appreciate your assistance in clarifying documentation. Please respond to the clarification below the line at the bottom and electronically sign. The CDI & [facility] Coding staff will review the response and follow-up if needed. Please note: Queries are made part of the Legal Health Record. If you have any questions, please contact the author of this message via ITS. Dr. Yahaira Dave: 72 yo male, admitted via ER with chest pain, dyspnea & slightly elevated CKMB & troponins, ACS ruled out by cardiology. History/Risk factors: Nonischemic cardiomyopathy, chronic diastolic CHF, ICD for paroxysmal A Fib w/PVCs, angina, hypertension & hyperlipidemia. Clinical Indicators: Recent stress test negative for obstructing CAD Labs: PT 19.1, INR 2.1, BUN 21, Gluc 160; CKMB 3.7, 4.1, 3.1; Trops 0.021, 0.012 , 0.012. ECHO 01/14: EF 20-25%, Mild aortic regurg, Mild MR, Mild TR. Treatment: ASA, IV Lasix, IV Ms, home meds including Warfarin, Metoprolol & Lisinopril Consults: Cardiology: Dyspnea & chest discomfort probably exacerbation of fluid overload in patient known history of nonischemic cardiomyopathy. In your professional opinion, can please clarify the cause of the patient's chest pain if possible: CAD with angina (vessel type if known and type of angina) Chest wall pain, nos Nonischemic cardiomyopathy CHF with specified type & acuity Cardiac arrhythmias, specify type if known Other condition, please specify Unable to determine Please continue to document in your progress notes and discharge summary in order to capture severity of illness and risk of mortality. Include clinical findings that support your diagnosis. Unable to determine MTDD
--- NOTE | 2018-01-15 12:33 | P.DS ---
Providers Date of admission: 01/14/18 09:32 Attending physician: Yahaira Dave Consults: 01/14/18 09:25 Consult Physician Routine Consulting Provider: Watson Estrella Consult Reason/Comments: CP, CHF, LBBB Do you want consulting provider notified?: Already Contacted Primary care physician: Elpidio [facility] Course: Patient was admitted for chest pain is noncardiac, patient had a recent stress test that was negative patient is being discharged today increasing the dose of Lasix to 40 mg daily from 3 times a week PHYSICAL EXAMINATION: GENERAL: The patient is alert and oriented x3, not in any acute distress. Well developed, well nourished. HEENT: Pupils are round and equally reacting to light. EOMI. No scleral icterus. No conjunctival pallor. Normocephalic, atraumatic. No pharyngeal erythema. No thyromegaly. CARDIOVASCULAR: S1 and S2 present. No murmurs, rubs, or gallops. PULMONARY: Chest is clear to auscultation, no wheezing or crackles. ABDOMEN: Soft, nontender, nondistended, normoactive bowel sounds. No palpable organomegaly. MUSCULOSKELETAL: No joint swelling or deformity. EXTREMITIES: No cyanosis, clubbing, or pedal edema. NEUROLOGICAL: Gross neurological examination did not reveal any focal deficits. SKIN: No rashes. Assessment and Plan Plan: Chest pain: -Nonischemic cardiomyopathy, chronic systolic dysfunction without any acute exacerbation patient has a a defibrillator in place patient is euvolemic at this time -Atrial fibrillation presently rate controlled -Status post VT ablation -Hyperlipidemia Patient Condition at Discharge: Stable Plan - Discharge Summary Discharge Rx Participant: No New Discharge Prescriptions: New RX: Furosemide [Lasix] 40 mg PO DAILY tab Continue RX: Spironolactone [Aldactone] 25 mg PO DAILY RX: Sotalol HCl [Sotalol] 160 mg PO BID RX: Metoprolol Tartrate [Lopressor] 25 mg PO BID RX: Lisinopril [Prinivil] 10 mg PO DAILY RX: Atorvastatin Calcium [Lipitor] 5 mg PO DAILY RX: Aspirin 81 mg PO DAILY RX: Warfarin [Coumadin] 2.5 mg PO MOWEFR RX: Warfarin [Coumadin] 5 mg PO SUTUTHSA Discontinued RX: Furosemide [Lasix] 40 mg PO MOWEFR Discharge Medication List RX: Aspirin 81 mg PO DAILY 12/17/13 [History] RX: Atorvastatin Calcium [Lipitor] 5 mg PO DAILY 12/17/13 [History] RX: Lisinopril [Prinivil] 10 mg PO DAILY 12/17/13 [History] RX: Metoprolol Tartrate [Lopressor] 25 mg PO BID 12/17/13 [History] RX: Sotalol HCl [Sotalol] 160 mg PO BID 12/17/13 [History] RX: Spironolactone [Aldactone] 25 mg PO DAILY 12/17/13 [History] RX: Warfarin [Coumadin] 2.5 mg PO MOWEFR 01/14/18 [History] RX: Warfarin [Coumadin] 5 mg PO SUTUTHSA 01/14/18 [History] RX: Furosemide [Lasix] 40 mg PO DAILY tab 01/15/18 [Rx] Follow up Appointment(s)/Referral(s): Stevenson Noriega MD [STAFF PHYSICIAN] - 2 Weeks (Office will call with follow up appointment.) Elpidio Scott DO [Primary Care Provider] - 01/17/18 4:00 pm ([phone] At [facility]. With Leana.) Ambulatory/Diagnostic Orders: Basic Metabolic Panel [LAB.AMB] Time Frame: 3 Days, Location: None Selected Patient Instructions/Handouts: Heart Failure (DC), Heart Healthy Diet (DC) Discharge Disposition: HOME SELF-CARE
[2018-01-15 12:59] VITALS: BP 138/63; PULSE 56; TEMP 98
[2018-01-15] MEDS ORDERED: WARFARIN 5 MG TAB PO SCH (18:00)
[2018-01-16] MEDS ORDERED: FUROSEMIDE 40 MG TAB PO SCH (09:00)
== END 2018-01-15 12:43 | disposition home or self-care (01) | DRG 313 ==
LOC: EC 07:25 → 6SEL 09:32
PROVIDERS: ADMIT Internal Medicine; ATTEND Internal Medicine
DX: R07.89 Other chest pain (principal); I42.9 Cardiomyopathy, unspecified; E78.5 Hyperlipidemia, unspecified; I48.0 Paroxysmal atrial fibrillation; I11.0 Hypertensive heart disease with heart failure; I50.9 Heart failure, unspecified; I44.7 Left bundle-branch block, unspecified; Z79.01 Long term (current) use of anticoagulants; Z95.810 Presence of automatic (implantable) cardiac defibrillator; I25.2 Old myocardial infarction; Z87.891 Personal history of nicotine dependence; Z79.82 Long term (current) use of aspirin; Z79.899 Other long term (current) drug therapy
CPT/HCPCS: 36415; 71046; 80048; 80053; 82550; 82553; 83735; 83880; 84484; 85025; 85610; 85730; 93005; 93306; 96374; 99285

== ENCOUNTER → 2018-11-20 | Outpatient (CLI) | payer MEDICARE ==
--- NOTE | 2018-11-20 19:06 | US ---
EXAMINATION TYPE: US venous doppler duplex LE RT DATE OF EXAM: 11/20/2018 6:46 PM COMPARISON: NONE CLINICAL HISTORY: R60.00 Edema of right lower extremity. Right leg edema and lump in the calf area. SIDE PERFORMED: Right TECHNIQUE: The lower extremity deep venous system is examined utilizing real time linear array sonog terence with graded compression, doppler sonography and color-flow sonography. VESSELS IMAGED: External Iliac Vein (EIV) Common Femoral Vein Deep Femoral Vein Greater Saphenous Vein * Femoral Vein Popliteal Vein Small Saphenous Vein * Proximal Calf Veins (* superficial vessels) Right Leg: Negative for DVT No evidence of DVT right leg. Fluid pocket visualized in calf area of lump measuring 3.7 x 0.8 x 3.9c m. IMPRESSION: No evidence of deep venous thrombosis. There is complex fluid in the calf that could be a chronic hematoma.
== END | disposition home or self-care (01) ==
LOC: RADUSMAIN 17:41
PROVIDERS: ATTEND Family Medicine
DX: R60.0 Localized edema (principal)

== ENCOUNTER 2019-02-23 11:35 | Emergency (ER) | payer MEDICARE ==
[2019-02-23 11:40] VITALS: RESP 18
[2019-02-23] MEDS ORDERED: SODIUM CHLORIDE 0.9% 500 ML 500 ML IV STA (11:48)
--- NOTE | 2019-02-23 11:51 | ED ---
General Adult HPI - General Chief complaint: Dizziness Stated complaint: Near syncope Time Seen by Provider: 02/23/19 11:35 Source: patient, RN notes reviewed Mode of arrival: ambulatory Limitations: no limitations - History of Present Illness Initial comments: This is a 73-year-old male who presents emergency Department complaining that he feels as though if he relaxes is going to fall sleep. Patient states when he had this before his blood pressure was low and that once a corrected that his symptoms went away. Patient states today his blood pressures been fine. Patient denies any near syncopal episode. Patient denies any dizziness. Patient denies any headache patient denies numbness weakness. Patient denies any palpitations. Patient denies any chest pain. Patient denies being short of breath. Patient denies any recent fever chills or cough per patient denies abdominal pain patient denies nausea vomiting diarrhea. - Related Data Home Medications Medication Instructions Recorded Confirmed Atorvastatin Calcium [Lipitor] 5 mg PO HS 12/17/13 02/23/19 Lisinopril [Prinivil] 10 mg PO DAILY 12/17/13 02/23/19 Metoprolol Tartrate [Lopressor] 12.5 mg PO BID 12/17/13 02/23/19 Sotalol HCl [Sotalol] 160 mg PO BID 12/17/13 02/23/19 Spironolactone [Aldactone] 25 mg PO DAILY 12/17/13 02/23/19 Warfarin [Coumadin] 2.5 mg PO MOWEFR 01/14/18 02/23/19 Warfarin [Coumadin] 5 mg PO SUTUTHSA 01/14/18 02/23/19 Furosemide [Lasix] 20 mg PO DAILY 02/23/19 02/23/19 Melatonin 5 mg PO HS 02/23/19 02/23/19 Naproxen Sod/Diphenhydramine 1 tab PO HS 02/23/19 02/23/19 [Aleve Pm Caplet] Allergies Allergy/AdvReac Type Severity Reaction Status Date / Time No Known Allergies Allergy Verified 02/23/19 11:54 Review of Systems ROS Statement: Those systems with pertinent positive or pertinent negative responses have been documented in the HPI. ROS Other: All systems not noted in ROS Statement are negative. Past Medical History Past Medical History: Cancer, Chest Pain / Angina, Heart Failure, Hyperlipidemia, Myocardial Infarction (DE) Additional Past Medical History / Comment(s): SKIN CA, SEE DR GEE H&P, past silent mi, palitaions,past arrythmia, sinus problems, arthritis in hands Last Myocardial Infarction Date:: unk History of Any Multi-Drug Resistant Organisms: None Reported Past Surgical History: Hernia Repair Additional Past Surgical History / Comment(s): PYLORIC STENOSIS REPAIR , emmy rotator cuff, skin ca removed formnose 2006, emmy inguinal haernia repair, vasectomy. Past Anesthesia/Blood Transfusion Reactions: No Reported Reaction Type of Cardiac Device: Unknown Device Placement Date:: UNKNOWN Past Psychological History: No Psychological Hx Reported Smoking Status: Former smoker Past Alcohol Use History: Rare Past Drug Use History: None Reported - Past Family History Mother Family Medical History: No Reported History Additional Family Medical History / Comment(s): from old age Father Additional Family Medical History / Comment(s): pace maker General Exam - General Exam Comments Initial Comments: GENERAL: Patient is well-developed and well-nourished. Patient is nontoxic and well- hydrated and is in no acute distress. ENT: Neck is soft and supple. No significant lymphadenopathy is noted. Oropharynx is clear. Moist mucous membranes. Neck has full range of motion without eliciting any pain. EYES: The sclera were anicteric and conjunctiva were pink and moist. Extraocular movements were intact and pupils were equal round and reactive to light. Eyelids were unremarkable. PULMONARY: Unlabored respirations. Good breath sounds bilaterally. No audible rales rhonchi or wheezing was noted. CARDIOVASCULAR: There is a regular rate and rhythm without any murmurs gallops or rubs. ABDOMEN: Soft and nontender with normal bowel sounds. No palpable organomegaly was noted. There is no palpable pulsatile mass. SKIN: Skin is clear with no lesions or rashes and otherwise unremarkable. NEUROLOGIC: Patient is alert and oriented x3. Cranial nerves II through XII are grossly intact. Motor and sensory are also intact. Normal speech, volume and content. Symmetrical smile. MUSCULOSKELETAL: Normal extremities with adequate strength and full range of motion. No lower extremity swelling or edema. No calf tenderness. LYMPHATICS: No significant lymphadenopathy is noted PSYCHIATRIC: Normal psychiatric evaluation. Limitations: no limitations Course Vital Signs 02/23/19 02/23/19 11:36 12:44 Temperature 97.6 F Pulse Rate 56 L Pulse Rate [ 57 L Sitting] Pulse Rate [ 58 L Standing] Pulse Rate [ 54 L Supine] Respiratory 18 18 Rate Blood Pressure 121/79 Blood Pressure 115/67 [Sitting] Blood Pressure 112/56 [Standing] Blood Pressure 111/72 [Supine] O2 Sat by Pulse 98 Oximetry Medical Decision Making - Medical Decision Making EKG shows intraventricular rhythm with a left bundle branch block at a rate of 55 bpm QRS is 162 QT interval 410 QTC is 487. EKG shows no P waves and is bradycardic at 55 beats a minute both of which are new findings on this EKG. One pack and reevaluate the patient he continues to be asymptomatic. - Lab Data Result diagrams: 02/23/19 12:07 02/23/19 12:07 Lab Results 02/23/19 02/23/19 02/23/19 Range/Units 12:07 12:07 12:07 WBC 7.8 (3.8-10.6) k/uL RBC 4.94 (4.30-5.90) m/uL Hgb 14.6 (13.0-17.5) gm/dL Hct 44.1 (39.0-53.0) % MCV 89.4 (80.0-100.0) fL MCH 29.6 (25.0-35.0) pg MCHC 33.1 (31.0-37.0) g/dL RDW 13.3 (11.5-15.5) % Plt Count 173 (150-450) k/uL Neutrophils % 71 % Lymphocytes % 17 % Monocytes % 7 % Eosinophils % 1 % Basophils % 2 % Neutrophils # 5.6 (1.3-7.7) k/uL Lymphocytes # 1.4 (1.0-4.8) k/uL Monocytes # 0.5 (0-1.0) k/uL Eosinophils # 0.1 (0-0.7) k/uL Basophils # 0.1 (0-0.2) k/uL PT 26.5 H (9.0-12.0) sec INR 2.7 H (<1.2) APTT 33.0 H (22.0-30.0) sec Sodium 139 (137-145) mmol/L Potassium 4.4 (3.5-5.1) mmol/L Chloride 100 (98-107) mmol/L Carbon Dioxide 30 (22-30) mmol/L Anion Gap 9 mmol/L BUN 34 H (9-20) mg/dL Creatinine 1.78 H (0.66-1.25) mg/dL Est GFR (CKD-EPI)AfAm 42 (>60 ml/min/1.73 sqM) Est GFR (CKD-EPI)NonAf 37 (>60 ml/min/1.73 sqM) Glucose 232 H (74-99) mg/dL Calcium 9.5 (8.4-10.2) mg/dL Magnesium 2.0 (1.6-2.3) mg/dL Total Bilirubin 1.1 (0.2-1.3) mg/dL AST 23 (17-59) U/L ALT 26 (21-72) U/L Alkaline Phosphatase 74 (38-126) U/L Troponin I (0.000-0.034) ng/mL Total Protein 6.6 (6.3-8.2) g/dL Albumin 4.0 (3.5-5.0) g/dL Urine Color Urine Appearance (Clear) Urine pH (5.0-8.0) Ur Specific [place] (1.001-1.035) Urine Protein (Negative) Urine Glucose (UA) (Negative) Urine Ketones (Negative) Urine Blood (Negative) Urine Nitrite (Negative) Urine Bilirubin (Negative) Urine Urobilinogen (<2.0) mg/dL Ur Leukocyte Esterase (Negative) Urine RBC (0-5) /hpf Urine WBC (0-5) /hpf Ur Squamous Epith Cells (0-4) /hpf Urine Bacteria (None) /hpf Hyaline Casts (0-2) /lpf Urine Mucus (None) /hpf 02/23/19 02/23/19 Range/Units 12:07 14:00 WBC (3.8-10.6) k/uL RBC (4.30-5.90) m/uL Hgb (13.0-17.5) gm/dL Hct (39.0-53.0) % MCV (80.0-100.0) fL MCH (25.0-35.0) pg MCHC (31.0-37.0) g/dL RDW (11.5-15.5) % Plt Count (150-450) k/uL Neutrophils % % Lymphocytes % % Monocytes % % Eosinophils % % Basophils % % Neutrophils # (1.3-7.7) k/uL Lymphocytes # (1.0-4.8) k/uL Monocytes # (0-1.0) k/uL Eosinophils # (0-0.7) k/uL Basophils # (0-0.2) k/uL PT (9.0-12.0) sec INR (<1.2) APTT (22.0-30.0) sec Sodium (137-145) mmol/L Potassium (3.5-5.1) mmol/L Chloride (98-107) mmol/L Carbon Dioxide (22-30) mmol/L Anion Gap mmol/L BUN (9-20) mg/dL Creatinine (0.66-1.25) mg/dL Est GFR (CKD-EPI)AfAm (>60 ml/min/1.73 sqM) Est GFR (CKD-EPI)NonAf (>60 ml/min/1.73 sqM) Glucose (74-99) mg/dL Calcium (8.4-10.2) mg/dL Magnesium (1.6-2.3) mg/dL Total Bilirubin (0.2-1.3) mg/dL AST (17-59) U/L ALT (21-72) U/L Alkaline Phosphatase (38-126) U/L Troponin I <0.012 (0.000-0.034) ng/mL Total Protein (6.3-8.2) g/dL Albumin (3.5-5.0) g/dL Urine Color Yellow Urine Appearance Clear (Clear) Urine pH 5.0 (5.0-8.0) Ur Specific [place] 1.015 (1.001-1.035) Urine Protein Negative (Negative) Urine Glucose (UA) Negative (Negative) Urine Ketones Negative (Negative) Urine Blood Negative (Negative) Urine Nitrite Negative (Negative) Urine Bilirubin Negative (Negative) Urine Urobilinogen 2.0 (<2.0) mg/dL Ur Leukocyte Esterase Trace H (Negative) Urine RBC 1 (0-5) /hpf Urine WBC 6 H (0-5) /hpf Ur Squamous Epith Cells <1 (0-4) /hpf Urine Bacteria Rare H (None) /hpf Hyaline Casts 67 H (0-2) /lpf Urine Mucus Rare H (None) /hpf Disposition Clinical Impression: Dehydration, Renal insufficiency, Bradycardia, Lightheaded Disposition: HOME SELF-CARE Condition: Good Instructions (If sedation given, give patient instructions): Bradycardia (ED) Additional Instructions: Patient should follow-up with his primary medical care doctor and his counselor camp. Referrals: Elpidio Scott DO [Primary Care Provider] - 1-2 days Time of Disposition: 14:38
[2019-02-23 12:27] LABS: Basophils # (A) 0.1 k/uL (0-0.2); Basophils % (A) 2 %; Eosinophils # (A) 0.1 k/uL (0-0.7); Eosinophils % (A) 1 %; HCT 44.1 % (39.0-53.0); HGB 14.6 gm/dL (13.0-17.5); Lymphocytes # (A) 1.4 k/uL (1.0-4.8); Lymphocytes % (A) 17 %; MCH 29.6 pg (25.0-35.0); MCHC 33.1 g/dL (31.0-37.0); MCV 89.4 fL (80.0-100.0); Mean Platelet Volume 7.1; Monocytes # (A) 0.5 k/uL (0-1.0); Monocytes % (A) 7 %; Neutrophils # (A) 5.6 k/uL (1.3-7.7); Neutrophils % (A) 71 %; Platelet Count 173 k/uL (150-450); RBC 4.94 m/uL (4.30-5.90); RDW 13.3 % (11.5-15.5); WBC 7.8 k/uL (3.8-10.6)
--- NOTE | 2019-02-23 12:32 | XR ---
EXAMINATION TYPE: XR chest 2V DATE OF EXAM: 02/23/2019 COMPARISON: 01/14/2018 HISTORY: Dizziness and weakness TECHNIQUE: Frontal and lateral views of the chest are obtained. FINDINGS: Suboptimal inflation of the lungs. Minimal strand-like probable bibasilar atelectasis. No focal consolidation. Cardia mediastinal silhouette is upper limits of normal and stable with dual gabriella d left-sided cardiac device. Generalized osseous demineralization is seen. IMPRESSION: Focal ventilatory lungs with minimal probable bibasilar subsegmental atelectasis. No foc al consolidation.
[2019-02-23 12:34] LABS: Calcium 9.5 mg/dL (8.4-10.2); Potassium 4.4 mmol/L (3.5-5.1); Total Bilirubin 1.1 mg/dL (0.2-1.3); Total Protein 6.6 g/dL (6.3-8.2)
[2019-02-23 12:36] LABS: INR 2.7 (<1.2); Prothrombin Time 26.5 sec (9.0-12.0)
[2019-02-23 14:19] LABS: Appearance,Urine Clear (Clear); Bacteria,Urine Rare /hpf; Bilirubin,Urine Negative (Negative); Blood,Urine Negative (Negative); Color,Urine Yellow; Glucose,Urine (UA) Negative (Negative); Hyaline Casts,Urine 67 /lpf (0-2); Ketones,Urine Negative (Negative); Leukocyte Esterase,Urine Trace (Negative); Mucus,Urine Rare /hpf; Nitrite,Urine Negative (Negative); Protein,Urine Negative (Negative); RBC,Urine 1 /hpf (0-5); Specific Gravity,Urine 1.015 (1.001-1.035); Squamous Epithelial Cell,Urine <1 /hpf (0-4)
[2019-02-23 14:48] VITALS: BP 118/74; PULSE 58; TEMP 98.4
== END 2019-02-23 14:49 | disposition home or self-care (01) ==
LOC: EC 11:35
DX: E86.0 Dehydration (principal); N28.9 Disorder of kidney and ureter, unspecified; R00.1 Bradycardia, unspecified; I44.7 Left bundle-branch block, unspecified; I50.9 Heart failure, unspecified; E78.5 Hyperlipidemia, unspecified; I25.2 Old myocardial infarction; M19.041 Primary osteoarthritis, right hand; M19.042 Primary osteoarthritis, left hand; Z87.891 Personal history of nicotine dependence; Z79.01 Long term (current) use of anticoagulants; Z79.1 Long term (current) use of non-steroidal anti-inflammatories (NSAID); Z79.899 Other long term (current) drug therapy; Z85.828 Personal history of other malignant neoplasm of skin; Z86.79 Personal history of other diseases of the circulatory system; Z98.890 Other specified postprocedural states; Z82.49 Family history of ischemic heart disease and other diseases of the circulatory system
CPT/HCPCS: 36415; 71046; 80053; 81001; 83735; 84484; 85025; 85610; 85730; 93005; 99284

== ENCOUNTER 2019-05-20 05:50 | Day surgery (SDC) | payer MEDICARE ==
[2019-05-13 15:52] VITALS: BMI 27.3
[2019-05-20] MEDS ORDERED: HYDROmorphone 0.5 MG/0.5 ML SYRINGE IVP PRN (06:12)
[2019-05-20] MEDS ORDERED: MIDAZOLAM 2 MG/2 ML VIAL IV PRN (06:12)
[2019-05-20] MEDS ORDERED: ceFAZolin 1,000 MG in SODIUM CHLORIDE 0.9% IRRIGATIO 250 ML IRRIGATION ONE (06:12)
[2019-05-20 06:50] VITALS: RESP 18
[2019-05-20] MEDS: SODIUM CHLORIDE 0.9% 1,000 ML IV SCH ×2 (06:50→19:25)
[2019-05-20] MEDS ORDERED: LIDOCAINE 1% INJ 10MG/ML (20 ML MDV) ONE ×2 (07:24→07:25)
[2019-05-20 07:27] LABS: INR 1.6 (<1.2); Prothrombin Time 15.6 sec (9.0-12.0)
[2019-05-20] MEDS ORDERED: fentaNYL (PF) 50 MCG/ML 2 ML AMP ONE (07:35)
[2019-05-20] MEDS ORDERED: MIDAZOLAM 2 MG/2 ML VIAL ONE (07:35)
[2019-05-20] MEDS ORDERED: PROPOFOL 10 MG/ML 20 ML VIAL IV ONE (07:35)
[2019-05-20] MEDS ORDERED: LIDOCAINE 1% INJ 10MG/ML (20 ML MDV) SQ ONE ×2 (08:16→08:23)
[2019-05-20] MEDS: LACTATED RINGERS 1,000 ML IV SCH (09:08)
[2019-05-20] MEDS ORDERED: IOPAMIDOL-370 50ML BTL INJ ONE (09:17)
[2019-05-20] MEDS ORDERED: HYDROcodone/APAP 5-325MG 1 EACH TAB PO PRN (10:00)
[2019-05-20] MEDS ORDERED: ACETAMINOPHEN TAB 325 MG TAB PO PRN (10:00)
[2019-05-20] MEDS ORDERED: ACETAMINOPHEN IV (For NPO) 1,000 MG in EMPTY BAG 1 BAG IVPB ONE (11:00)
[2019-05-20] MEDS: SOTALOL 120 MG TAB PO SCH (19:37)
[2019-05-20] MEDS: METOPROLOL TARTRATE 12.5 MG TAB PO SCH (19:37)
--- NOTE | 2019-05-20 20:20 | PCN ---
PROCEDURE NOTE Sang Cardenas is a 73-year-old male patient with nonischemic cardiomyopathy with a dual- chamber ICD with IVCD and class 3 CHF with severe LV dysfunction, ejection fraction less than 30%, chronic LV systolic dysfunction despite medical treatment. He has a history of ventricular tachycardia and frequent PVCs. He was brought in for an upgrade to a biventricular ICD for heart failure management. The patient was brought to the EP lab in a fasting state. Written informed consent was obtained prior to the procedure. The left shoulder area was prepped and draped as per protocol. Lidocaine 1% was used for local anesthesia. An incision was made directly over the previous surgical site and carried down to the level of the generator. The old generator was explanted. This was a [employer], model number E110, serial number [id number], originally implanted in 2010. Partial capsulectomy was performed. Hemostasis was assured after partial capsulectomy. Access was obtained in the left axillary vein, and via an appropriately-sized introducer sheath, the coronary sinus was cannulated. A coronary sinus venogram was performed. The patient had a large anterolateral vein. An LV lead was placed. This was a [employer] model number 1458Q, 75 cm in length and serial number [id number]. This was positioned in the anterolateral vein and placed distally along the lateral aspect of the LV. Excellent thresholds were obtained on all LV poles, but diaphragmatic stimulation was noted in the proximal LV pole. No diaphragmatic stimulation was noted in LV 1, 2 and 3 poles. The R-waves were 29.7 mV, pacing impedance 430 ohms, pacing threshold 0.4 V at 0.5 milliseconds. Ten-volt test was negative. The sheath was removed. The lead was secured to the underlying pectoralis muscle with 2 nonabsorbable sutures. Pocket was irrigated with antibiotic solution. The new generator was implanted. The new generator was a [employer] model number XT9521-66G high-output device, serial number [id number]. P-waves were 0.7 mV, pacing impedance 360 ohms, pacing threshold in the atrium 0.5 V at 0.5 milliseconds. The chronic dual-coil ICD lead was a [employer] model number 0185, serial number [id number]. It was originally implanted in 2004. R-waves 11.7 mV, pacing impedance 510 ohms, pacing threshold 0.75 V at 0.5 milliseconds. The new generator with the leads were then placed in the subfascial pocket and the wound was closed in 3 layers and dressed per protocol. RESULT: Successful upgrade to a biventricular ICD with implantation of a new LV lead. A fairly lateral pacing site was obtained without any diaphragmatic stimulation with excellent thresholds. The device was then programmed to DDDR mode at 60 to 130 bpm with biventricular pacing turned on. Appropriate antitachycardia pacing and cardioversion defibrillations were programmed. MMODL / IJN: [id number] /
--- NOTE | 2019-05-20 20:26 | LTR ---
May 20, 2019 To: Dr. Elpidio Scott Re: Sang Cardenas (41) Dear Dr. Scott, I had the pleasure of seeing Sang in electrophysiology followup once again. He has severe nonischemic cardiomyopathy with heart failure with a wide QRS and he underwent upgrade to a biventricular ICD today successfully. His medications at this time remain unchanged and he will continue to follow with you and with us as before. Thank you for entrusting me with the care of your patient. Warm regards. Sincerely, Stevenson Noriega M.D. SANTINO / STEPHANIE: [id number] /
[2019-05-20] MEDS ORDERED: MELATONIN 5 MG TABLET PO SCH (21:00)
[2019-05-20] MEDS ORDERED: ATORVASTATIN 10 MG TAB PO SCH (21:00)
[2019-05-20] MEDS ORDERED: SOTALOL 80 MG TAB PO SCH (21:00)
[2019-05-21] MEDS: LACTATED RINGERS 1,000 ML IV SCH (00:43)
[2019-05-21] MEDS: SODIUM CHLORIDE 0.9% 1,000 ML IV SCH ×2 (00:43)
[2019-05-21 03:10] LABS: Magnesium 2.1 mg/dL (1.6-2.3)
[2019-05-21] MEDS: SOTALOL 120 MG TAB PO SCH (07:47)
[2019-05-21] MEDS: METOPROLOL TARTRATE 12.5 MG TAB PO SCH (07:47)
--- NOTE | 2019-05-21 07:50 | P.DS ---
Providers Attending physician: Stevenson Noriega Primary care physician: [facility] Course: Patient is doing well. He has no chest discomfort dizziness lightheadedness or palpitations. Mild discomfort in the surgical site area. Yesterday he underwent upgrade to a biventricular ICD for management of heart failure with severe LV systolic dysfunction and underlying wide QRS of the left bundle branch block morphology Pulse rate in the 60s he is afebrile 98.1F blood pressure 116/70 mmHg Breath sounds are clear no rhonchi no crackles Heart sounds are normal Minimal hematoma with minimal soakage over the ICD site Abdomen soft Extended is warm Impression Upgrade to bilateral twice a day for management of class III congestive heart failure with underlying left bundle branch block morphology and severe LV dysfunction, nonischemic cardio myopathy Plan Discharge home after completion of IV antibiotics, chest x-ray and device interrogation Reduce sotalol to 120 mg twice daily Continue all other medications He will need a follow-up PT/INR within a week He will also need a follow-up BMP specifically BUN and creatinine to assess renal function after 3-4 weeks of biventricular pacing Patient Condition at Discharge: Stable Plan - Discharge Summary Discharge Rx Participant: No New Discharge Prescriptions: New Sotalol [Betapace] 120 mg PO BID #180 tablet Discontinued Sotalol HCl [Sotalol] 160 mg PO BID No Action Spironolactone [Aldactone] 25 mg PO DAILY Metoprolol Tartrate [Lopressor] 12.5 mg PO BID Lisinopril [Prinivil] 10 mg PO DAILY Atorvastatin Calcium [Lipitor] 5 mg PO HS Warfarin [Coumadin] 2.5 mg PO MOWEFR Melatonin 5 mg PO HS Furosemide [Lasix] 20 mg PO DAILY Naproxen Sod/Diphenhydramine [Aleve Pm Caplet] 1 tab PO HS Discharge Medication List Atorvastatin Calcium [Lipitor] 5 mg PO HS 12/17/13 [History] Lisinopril [Prinivil] 10 mg PO DAILY 12/17/13 [History] Metoprolol Tartrate [Lopressor] 12.5 mg PO BID 12/17/13 [History] Spironolactone [Aldactone] 25 mg PO DAILY 12/17/13 [History] Warfarin [Coumadin] 2.5 mg PO MOWEFR 01/14/18 [History] Furosemide [Lasix] 20 mg PO DAILY 02/23/19 [History] Melatonin 5 mg PO HS 02/23/19 [History] Naproxen Sod/Diphenhydramine [Aleve Pm Caplet] 1 tab PO HS 02/23/19 [History] Sotalol [Betapace] 120 mg PO BID #180 tablet 05/20/19 [Rx] Follow up Appointment(s)/Referral(s): Stevenson Noriega MD [STAFF PHYSICIAN] - 1 Week (Follow-up in the device clinic in [address] Noriega/Courtney Isbell/Yuliana Granados as previously scheduled or in 3 months) Activity/Diet/Wound Care/Special Instructions: PATIENT EDUCATION MATERIAL Instructions following a heart rhythm device implant. 1. Keep dressing DRY for 5 DAYS. You may cover the area with Saran or Cling Wrap, prior to a shower. 2. The dressing will be removed in the Device Clinic at [facility]. Absorbable sutures were used to close the wound. 3. Avoid raising the left arm above the shoulder level. 4 week restriction 4. Avoid arm movements, like backscratching, rubbing the head, or pulling on a cord. 4 weeks restriction 5. Gentle range of motion movements of the shoulder, closest to the incision should be performed to avoid a frozen shoulder. (Pendulum exercises of the [facility]) 6. The opposite arm may be used freely. 7. Avoid driving for 7 days. 8. Avoid activities such as golfing, swimming, weed whacking, lifting more than 10 pounds weight, bowling, gymnastics and weight training/lifting. (6 weeks restriction) 9. Activities such as wood chopping with an axe, pull-ups in the gymnasium, power lifting, arc-welding, being close to home induction cooktops will always be a problem. 10. Arm sling is only a reminder not to raise the arm above the head. You do not need to keep the arm completely immobilized. Your free to move the arm and use it and for normal activities. In case of any problems, please call [facility], [facility], @ [phone], Attention: Device Clinic Device clinic follow-up in 5 days Follow-up with primary networking administrator in 2-3 months Continue all medications as previously prescribed Discharge Disposition: HOME SELF-CARE
--- NOTE | 2019-05-21 08:34 | XR ---
EXAMINATION TYPE: XR chest 2V DATE OF EXAM: 05/21/2019 COMPARISON: 02/23/2019 HISTORY: Shortness of breath TECHNIQUE: Frontal and lateral views of the chest are obtained. FINDINGS: Scattered senescent parenchymal changes noted. No evidence for infiltrate. No evidence for atelectasis. Heart size is stable. Mediastinal structures are stable and grossly unremarkable. No evidence for hilar prominence. Degenerative changes dorsal spine. IMPRESSION: 1. No evidence for acute pulmonary disease.
[2019-05-21] MEDS ORDERED: FUROSEMIDE 20 MG TAB PO SCH (09:00)
[2019-05-21] MEDS ORDERED: SPIRONOLACTONE 25 MG TAB PO SCH (09:00)
[2019-05-21] MEDS ORDERED: LISINOPRIL 10 MG TAB PO SCH (09:00)
[2019-05-21 11:26] VITALS: BP 107/72; PULSE 60; TEMP 97.8
[2019-05-21] MEDS ORDERED: WARFARIN 2.5 MG TAB PO SCH (18:00)
== END 2019-05-21 15:30 | disposition home or self-care (01) ==
LOC: CATHEP 05:50 → 1SOBS 09:38 → CATHEP 05-21 15:30
PROVIDERS: ATTEND Internal Medicine Clinical Cardiac Electrophysiology
DX: Z45.02 Encounter for adjustment and management of automatic implantable cardiac defibrillator (principal); I49.3 Ventricular premature depolarization; I47.2 Ventricular tachycardia; I42.9 Cardiomyopathy, unspecified; I44.7 Left bundle-branch block, unspecified; I11.0 Hypertensive heart disease with heart failure; I50.22 Chronic systolic (congestive) heart failure; I48.0 Paroxysmal atrial fibrillation; Z79.01 Long term (current) use of anticoagulants; Z79.899 Other long term (current) drug therapy; Z88.8 Allergy status to other drugs, medicaments and biological substances; Z87.891 Personal history of nicotine dependence; Z85.828 Personal history of other malignant neoplasm of skin; Z95.810 Presence of automatic (implantable) cardiac defibrillator
CPT/HCPCS: 33225; 33264; 83735; 84132; 85610; 71046; C1769 ×3; C1892; C1730; C1900; C1882; J2250; J0690 ×2; J2001; J3010; J0131; J2704; Q9967

== ENCOUNTER → 2021-09-27 | Day surgery (SDC) | payer MEDICARE ==
[~2021-09-27] MED LIST: LACTATED RINGERS 1,000 ML IV SCH; SODIUM CHLORIDE 0.9% 1,000 ML IV SCH
[2021-09-27 06:27] VITALS: BP 113/56; PULSE 68; RESP 18; TEMP 97.9
[2021-09-27 06:58] LABS: INR 2.7 (<1.2); Prothrombin Time 27.1 sec (9.0-12.0)
--- NOTE | 2021-09-27 07:39 | P.EPPROC ---
- EP Procedure Note Electrophysiology Procedure Note: Diagnosis Worsening congestive heart failure Persistent atrial fibrillation, therefore amiodarone was begun History of ventricular tachycardia Nonischemic current myopathy severe LV dysfunction Status post IV ICD Procedure Patient was brought to the EP lab Device was interrogated He was found to be in atrial paced-Bi V paced rhythm Bi V ICD was interrogated and reprogrammed to reveal underlying rhythm Underlying rhythm revealed sinus mechanism with Bi V pacing Therefore no cardioversion was performed. Device is programmed to DDDR 60 Therapies were turned back on The patient's INR is therapeutic at 2.7 Plan continue amiodarone at 200 mg by mouth daily Continue Coumadin Continue Lasix 40 mg by mouth daily Continue spironolactone 25 mg daily Continue losartan 25 mg by mouth daily Continue metoprolol succinate 50 mg daily Follow-up in the device clinic in 4 months Follow-up with Dr. Noriega in 4 months Procedures performed Device interrogation with reprogramming
--- NOTE | 2021-09-27 11:29 | P.PRLE ---
RE: Sang Cardenas Dear Dr. Sonia Domínguez was admitted to the hospital a few months back in heart failure. He was found to be in persistent atrial fibrillation. He has a history of nonischemic or myopathy congestive heart failure and atrial tachycardia. I switched him to oral amiodarone and brought him in after oral loading for electrical cardioversion He had chemically converted to sinus rhythm and feels a lot better from a heart failure standpoint I would recommend continuing Coumadin and also dropping the dose of amiodarone to 200 mg by mouth daily In the future I hope to reduce the amiodarone dose even further if possible He will continue his other heart failure medications unchanged Thank you for entrusting me with the care of the patient Warm regards Sincerely Stevenson Noriega
== END ==
LOC: CATHEP 05:41
PROVIDERS: ATTEND Internal Medicine Clinical Cardiac Electrophysiology
DX: I50.22 Chronic systolic (congestive) heart failure (principal); I47.2 Ventricular tachycardia; I48.19 Other persistent atrial fibrillation; Z79.01 Long term (current) use of anticoagulants; Z20.822 Contact with and (suspected) exposure to COVID-19; I49.9 Cardiac arrhythmia, unspecified; Z95.0 Presence of cardiac pacemaker; Z79.84 Long term (current) use of oral hypoglycemic drugs
CPT/HCPCS: 85610; 87635

== ENCOUNTER → 2022-07-10 | Outpatient (CLI) | payer MEDICARE ==
--- NOTE | 2022-07-10 15:55 | CT ---
EXAMINATION TYPE: CT ChestAbdPelvis wo con CT DLP: 999.9 mGycm, Automated exposure control for dose reduction was used. DATE OF EXAM: 07/10/2022 3:35 PM COMPARISON: Chest radiograph 05/21/2019. CLINICAL INDICATION:Male, 77 years old with history of R06.02sob K59.09constipa I50.22chf R10.84abd pain; PHH, abd pain, constipation Technique: Multiple axial images of the chest, abdomen, and pelvis were obtained without the administ ration intravenous contrast. Oral contrast was administered. Two-dimensional coronal and sagittal rec onstructions were obtained. Findings: CHEST: LUNGS/ PLEURA: No pleural effusion, pneumothorax, focal consolidation. Bilateral lower lobes linear segmental atelectasis. No suspicious pulmonary nodule or mass. AIRWAY: Patent and unremarkable.. HEART: Myocardium megaly. No pericardial effusion. Mild coronary artery calcifications. MEDIASTINUM: No gross evidence of adenopathy. VASCULATURE: No aortic aneurysm. Left chest wall cardiac pacemaker device. MUSCULOSKELETAL: No acute osseous abnormalities. No aggressive osseous lesion. SOFT TISSUES/LYMPH NODES: Bilateral gynecomastia. LOWER NECK: No significant findings. ABDOMEN: ABDOMEN LIVER: Unremarkable noncontrast appearance. GALLBLADDER AND BILE DUCTS: Unremarkable. PANCREAS: Unremarkable noncontrast appearance SPLEEN: Unremarkable noncontrast appearance ADRENAL GLANDS: Unremarkable noncontrast appearance. KIDNEYS AND URETERS: No evidence of hydronephrosis. Nonobstructive left 1 mm renal calculus.3.[address] arising from the superior pole of the right kidney. Nonspecific bilateral perinephric fat strandin g. PELVIS BLADDER: Unremarkable REPRODUCTIVE: Prostate is enlarged in size measuring 5.0 cm in transverse dimension. Coarse calcifica tions identified within the prostate gland. ABDOMEN & PELVIS STOMACH AND BOWEL: Stomach and duodenum are unremarkable. Scattered distal colonic diverticulosis wit hout evidence for acute diverticulitis. Minimal distal colonic stool burden. Enteric contrast reaches the distal small bowel. The appendix is within normal limits. No evidence of bowel obstruction. PERITONEUM: No evidence of pneumoperitoneum or free fluid. VASCULATURE: Mild atherosclerotic calcifications are present throughout the abdominal aorta and its b ranches. No abdominal aortic aneurysm. MUSCULOSKELETAL: No acute osseous abnormalities. No aggressive osseous lesion. LYMPH NODES: No gross evidence for lymphadenopathy. SOFT TISSUE/ABDOMINAL WALL: Small fat filled hiatal hernia. IMPRESSION: 1. No acute process within the chest, abdomen and pelvis. 2. Scattered colonic diverticulosis without evidence for acute diverticulitis. 3. Minimal distal colonic stool burden. 4. Nonobstructive left renal calculus.
== END | disposition home or self-care (01) ==
LOC: RADCTMAIN 13:37
PROVIDERS: ATTEND Family Medicine
DX: N20.0 Calculus of kidney (principal); K57.30 Diverticulosis of large intestine without perforation or abscess without bleeding; I50.22 Chronic systolic (congestive) heart failure; K59.09 Other constipation; R06.02 Shortness of breath; R10.84 Generalized abdominal pain
CPT/HCPCS: 71250; 74176

== ENCOUNTER → 2023-05-09 | Outpatient (CLI) | payer MEDICARE ==
[2023-05-09 08:54] VITALS: BP 102/72; PULSE 74; RESP 16; TEMP 97.7
--- NOTE | 2023-05-09 14:44 | P.PAINPG ---
PQRS Measure Charge Sheet Comment: HISTORY OF PRESENT ILLNESS: A 77 yr old male w at side as a referral from Dr Wagner presents today w severe and chronic LBP x 1 yr secondary to stenosis, DDD, spondylosis and facet arthropathy without myelopathy for evaluation. Pt states pain level is provoked at 9 /10 in intensity, constant, localized in the lower lumbar spine, predominantly axial, sharp in character w occasional shooting pain towards the buttocks, hips and LEs. Pain is provoked by walking/ standing for periods of 10 min or more. Pain is alleviated by PT x 3 wks which provoked pain, massage therapy x 6 wks which ended in Mar 2023, chiropractic treatments in 2021, heat, ice, medications ([place], Naproxen), topical, reclining, repositioning and rest. Oswestry axial pain score at 28. PMH: OA, Skin CA (2005), Angina, CHF, Hyperlipidemia, [place] PSH: BL Inguinal Hernia Repair, BL RCT Repair, Pacemaker (2018) SH: Negative x3 FH: Non contributory All: See list Meds: See list REVIEW OF ORGAN SYSTEMS: CONSTITUTIONAL: No fevers or chills. No recent weight loss. NEUROLOGICAL: + numbness and tingling along the distal extremities. No seizure disorders or headaches. MUSCULOSKELETAL: + pain PSYCHIATRIC: Denies current depression or suicidal thoug hts. Physical Examinations : Constitutional : Cooperative , not in acute distress . Neurologic : Cranial nerve II to XII intact. No focal neurological deficits. Psychiatric : alert & oriented x 3. Matching mood & appropriate affect. Judgment & insight intact. Musculoskeletal : Cervical Spine Motor strength in the deltoid and biceps: Normal right side. Normal Left side Motor strength biceps and the wrist extensors: Normal right side . Normal left side Motor strength in the triceps muscle: Normal right side. Normal left side Deep tendon reflexes: Normal at the biceps. Normal at Brachioradialis. Normal at triceps Vertebral body tenderness to deep palpation over Cervical facet loading test: positive bilaterally Spurling test: positive bilaterally Neck distraction test: positive bilaterally Ana sign: positive bilaterally Lumbar spine Motor strength lower extremities ,thigh and legs 5/5 Right side , 5/5 Left side Deep tendon reflexes : Normal Knee Jerk. Normal Ankle Jerk Vertebral body tenderness over L4 Garcia Test positive Lumbar facet Loading Test: positive Right / positive Left Range of motion of the lumbar spine Flexion 30 degrees, extension 10 degrees Straight Leg Raise test: Left/ Right positive at <30 degrees Jason test: positive right / positive left. Severe tenderness over the Sacroiliac joint on the Right / Left sides Gaenslen test: positive bilaterally Seated flexion test: positive bilaterally. Sacral spine : Severe tenderness over the Sacroiliac joint: right side / left side Range of motion: Flexion of the lumbar spine <60 degrees Range of motion: Extension of the lumbar spine <20 degrees Gaenslen's Test positive Jason test: positive right side / left side Thigh Thrust Test Sacral Thrust Test Imaging: CT noncontrast of the lumbar spine from 04/12/23 reviewed Assessment/ Plan : Lumbar stenosis, lumbar DDD Recommendation of LESI L4-L5 #1. May need a series of injections for optimal pain relief. Risks, benefits of procedure discussed and patient verbalized understanding. Admits to anti- coagulant use or medical history of diabetes. Protocol for discontinuation/ continuation of medications ross procedure discussed. Minimal anesthesia provided, if clinically indicated, consisting of Versed and Fentanyl. All questions answered. I have spent greater than 30 minutes on patient care today. Dr Copeland was available by phone for the evaluation of this patient. The time was used to review the medical records including relevant urine studies and Prescription history (MAPs), review of the available imaging, evaluation and examination of the patient, coordination of care with the medical staff and if applicable referring physicians, as well as creation of the medical record PQRS Narrative: Smoking Status Former smoker Home Medications: Ambulatory Orders Spironolactone [Aldactone] 25 mg PO DAILY 12/17/13 Warfarin [Coumadin] 3 mg PO HS 01/14/18 Furosemide [Lasix] 40 mg PO HS 02/23/19 Melatonin 5 mg PO HS 02/23/19 Losartan [Cozaar] 25 mg PO HS 09/26/21 Metoprolol Succinate (ER) [Toprol Xl] 50 mg PO DAILY 09/26/21 Naproxen Sodium [Aleve] 220 mg PO DIRECTED PRN 09/26/21 Amiodarone [Cordarone] 200 mg PO DAILY #90 tab 09/27/21 Controlled Substance Measures - Controlled Substance Measures Is patient prescribed a controlled substance at discharge?: No
== END ==
LOC: PNWHC3 07:52
PROVIDERS: ATTEND Specialist
DX: M51.36 Other intervertebral disc degeneration, lumbar region (principal); M48.061 Spinal stenosis, lumbar region without neurogenic claudication; M19.90 Unspecified osteoarthritis, unspecified site; I25.2 Old myocardial infarction; E78.5 Hyperlipidemia, unspecified; I50.9 Heart failure, unspecified; Z87.891 Personal history of nicotine dependence; Z85.828 Personal history of other malignant neoplasm of skin; Z88.8 Allergy status to other drugs, medicaments and biological substances
CPT/HCPCS: 99211

== ENCOUNTER 2023-05-29 11:16 | Day surgery (SDC) | payer MEDICARE ==
[2023-05-25 11:02] VITALS: BMI 24.2
[~2023-05-29 11:16] MED LIST changes: -SODIUM CHLORIDE 0.9% 1,000 ML IV SCH
[2023-05-29 12:21] VITALS: TEMP 97.1
[2023-05-29 13:05] LABS: INR 1.1 (<1.2); Prothrombin Time 11.8 sec (10.0-12.5)
[2023-05-29] MEDS ORDERED: methylPREDNISolone ACETATE 40 MG/ML 1 ML VIAL ONE (13:14)
[2023-05-29] MEDS ORDERED: IOPAMIDOL M200 10 ML VIAL ONE (13:14)
--- NOTE | 2023-05-29 13:20 | P.PCN ---
Date of Procedure: 05/29/23 Operative Findings: PREOPERATIVE DIAGNOSIS: lumbar radiculopathy POSTOPERATIVE DIAGNOSIS: Lumbar radiculopathy PROCEDURE 1. Lumbar epidural steroid injection under fluoroscopic guidance at the L4-L5 level. 2. Lumbar epidurogram. Imaging: Fluoroscopy was used, images where saved to the medical record ANESTHESIA: Local only EBL: Minimal PROCEDURE INDICATION: The patient with low back pain and radiculitis symptoms unresponsive to conservative treatment. Fluoroscopy was used to optimize visualization of the needle placement and to maximize safety. PROCEDURE DESCRIPTION / TECHNIQUE: The patient was seen and identified in the preoperative area. Risks, benefits, complications including but not limited to infections, bleeding, allergic reaction to medications, nerve damage and incomplete pain relief, as well as alternatives to the procedure were discussed with the patient. The patient agreed to proceed with the procedure and signed the consent. IV was started if indicated above, and vital signs were stable. Patient was taken to the OR and time out was completed. The patient was placed in the prone position on procedure table and a pillow was placed under the abdomen to reduce lumbar lordosis. The lumbosacral area was prepped and draped in the usual sterile fashion. Vitals were closely monitored during the procedure. Using anterior-posterior fluoroscopy, the L4-L5 interlaminar space was identified and the skin over this site was marked and then infiltrated with 1% lidocaine subcutaneously. Subsequently, a 20-gauge Tuohy epidural needle was inserted and advanced toward the epidural space using the Loss of resistance technique and guided by AP and lateral fluoroscopy. The correct needle position in the epidural space was verified with the injection of 1 mL of Omnipaque 180 contrast to observe an acceptable epidurogram, after negative aspiration for blood and CSF and in the absence of paresthesias. Again after negative a spiration, a 3 ml mixture containing 40mg of depomedrol and 2 ml of preservative free Normal Saline was injected and a washout of epidurogram was seen. Needle was withdrawn intact, skin was cleansed, and bandages were applied. COMPLICATIONS: None DISPOSITION / PLANS: The patient was placed in a supine position and transferred to the recovery area in a stable condition for observation. There was no evidence of lower extremity motor or sensory deficit after the procedure. Patient was discharged from the recovery room after meeting discharge criteria. Home discharge instructions were given to the patient by the staff. The patient was reexamined prior to discharge. The patient will follow up as directed.
[2023-05-29] MEDS ORDERED: HYDROcodone/APAP 7.5-325MG 1 EACH TAB ONE (13:37)
[2023-05-29] MEDS ORDERED: HYDROcodone/APAP 7.5-325MG 1 EACH TAB PO ONE (13:38)
--- NOTE | 2023-05-29 13:44 | FL ---
EXAMINATION TYPE: FL guided pain mgmt statistic DATE OF EXAM: 05/29/2023 HISTORY: Fluoroscopy time Total dose area product (DAP) in uGy*m?, mGy*cm? (or similar): 0.19590 IMPRESSION: 1. Fluoroscopy time.
[2023-05-29 14:26] VITALS: BP 99/66; PULSE 82; RESP 16
== END 2023-05-29 14:35 | disposition home health service (06) ==
LOC: ORPAIN 11:16
PROVIDERS: ATTEND Hospitalist
DX: M54.16 Radiculopathy, lumbar region (principal); Z79.01 Long term (current) use of anticoagulants; Z88.9 Allergy status to unspecified drugs, medicaments and biological substances
CPT/HCPCS: 62323; 85610

== ENCOUNTER → 2023-05-29 | Outpatient (CLI) | payer MEDICARE ==
[2023-05-29 12:23] LABS: ALT 34 U/L (4-49); AST 29 U/L (17-59); African American GFR (CKD) 33 (>60 ml/min/1.73 sqM); Albumin 4.3 g/dL (3.5-5.0); Albumin/Globulin Ratio 1.5; Alkaline Phosphatase 84 U/L (38-126); Blood Urea Nitrogen 79 mg/dL (9-20); Calcium 10.2 mg/dL (8.4-10.2); Carbon Dioxide 32 mmol/L (22-30); Chloride 96 mmol/L (98-107); Globulin 2.9 g/dL; Glucose 154 mg/dL (74-99); Non-African American GFR(CKD) 29 (>60 ml/min/1.73 sqM); Potassium 5.2 mmol/L (3.5-5.1); Sodium 140 mmol/L (137-145); Total Bilirubin 1.9 mg/dL (0.2-1.3); Total Protein 7.2 g/dL (6.3-8.2)
[2023-05-29 12:28] LABS: NT-Pro-B-Type Natriuretic Pept 9210 pg/mL
[2023-05-29 15:39] LABS: Basophils # (A) 0.01 X 10*3/uL (0.00-0.10); Basophils % (A) 0.1 %; Eosinophils # (A) 0.03 X 10*3/uL (0.04-0.35); Eosinophils % (A) 0.2 %; HCT 52.4 % (39.6-50.0); HGB 16.9 g/dL (13.0-17.0); Lymphocytes % (A) 10.1 %; MCH 29.9 pg (27.0-32.0); MCHC 32.3 g/dL (32.0-37.0); MCV 92.7 FL (80.0-97.0); Mean Platelet Volume 12.3 FL (9.5-12.2); Monocytes # (A) 1.24 X 10*3/uL (0.20-1.00); Monocytes % (A) 8.9 %; NRBC Per 100 WBC 0 X 10*3/uL (0.00-0.01); Neutrophils # (A) 11.14 X 10*3/uL (1.80-7.70); Neutrophils % (A) 80.1 %; Platelet Count 230 X 10*3/uL (140-440); RBC 5.65 X 10*6/uL (4.40-5.60); RDW 14.3 % (11.5-14.5)
[2023-05-29 18:35] LABS: Anion Gap 17 mmol/L (4.00-12.00); Microalbumin Creatinine Ratio <21 mg/g Cr (0-30); Urine Creatinine 57.2 mg/dL (39.0-259.0)
[2023-05-29 18:36] LABS: Prostate Specific Antigen 0.66 ng/mL (0.000-6.500)
== END | disposition home or self-care (01) ==
LOC: LABWHC1 10:25
PROVIDERS: ATTEND Family Medicine
DX: I12.9 Hypertensive chronic kidney disease with stage 1 through stage 4 chronic kidney disease, or unspecified chronic kidney disease (principal); E11.65 Type 2 diabetes mellitus with hyperglycemia; D68.59 Other primary thrombophilia; I48.0 Paroxysmal atrial fibrillation; M1A.0690 Idiopathic chronic gout, unspecified knee, without tophus (tophi); J44.9 Chronic obstructive pulmonary disease, unspecified; E78.2 Mixed hyperlipidemia
CPT/HCPCS: 36415; 80053; 82043; 82570; 83880; 84153; 84443; 85025

== ENCOUNTER → 2023-06-26 | Day surgery (SDC) | payer MEDICARE ==
[~2023-06-26] MED LIST changes: +IOPAMIDOL-370 100ML BTL INJ ONE; -LACTATED RINGERS 1,000 ML IV SCH; +SODIUM CHLORIDE 0.9% 1,000 ML IV SCH; +SODIUM CHLORIDE 0.9% 500 ML 500 ML IV ONE
[2023-06-26 14:17] VITALS: BP 123/68; PULSE 79; RESP 16; TEMP 97.7
--- NOTE | 2023-06-26 18:20 | P.EPPROC ---
- EP Procedure Note Electrophysiology Procedure Note: Diagnosis Severe congestive heart failure class III Severe cardio myopathy Frequent nonsustained VT, long runs, documented on biventricular ICD device telemetry Bi V ICD with the left ventricular lead in excellent position On guideline directly medical treatment Recent worsening of renal function with hyperkalemia, necessitating holding hans inhibitors/angiotensin receptor blockers/ENTRESTO and spironolactone However a combination of guideline directed heart failure medications and biven tricular pacing with an LV lead in the mid LV lateral position Details Cinefluoroscopy revealed a biventricular ICD with an atrial lead, ICD lead in the RV apex and a laterally positioned quadripolar LV lead, on the lateral LV wall in the SPANISH view Left upper extremity venogram was performed 15 mL IV dye injected Patent left axillary and subclavian vein Plan upgrade to left bundle pacing lead which would connect to the RV pacing port It is quite likely that his intramyocardial conduction delay is responsive below for his nonresponsiveness Hopefully a combination of left bundle pacing and LV pacing was on in improved intra ventricular synchrony with rapid conduction Labs are sent including TSH since he is already on amiodarone and to assess his renal function If his potassium and renal function improved I will attempt to restart entresto/hans inhibitors/angiotensin was blockers I will schedule the procedure for him
[2023-06-26 18:27] LABS: INR 1.4 (<1.2); Prothrombin Time 14.6 sec (10.0-12.5)
[2023-06-26 18:30] LABS: Basophils % (A) 0 %; Eosinophils # (A) 0.1 k/uL (0-0.7); Eosinophils % (A) 1 %; HCT 41.1 % (39.0-53.0); Lymphocytes # (A) 0.9 k/uL (1.0-4.8); Lymphocytes % (A) 11 %; MCH 30.6 pg (25.0-35.0); MCHC 31.7 g/dL (31.0-37.0); MCV 96.4 fL (80.0-100.0); Mean Platelet Volume 7.8; Monocytes # (A) 0.5 k/uL (0-1.0); Monocytes % (A) 6 %; Neutrophils # (A) 6.5 k/uL (1.3-7.7); Neutrophils % (A) 80 %; Platelet Count 170 k/uL (150-450); RBC 4.27 m/uL (4.30-5.90); RDW 14.5 % (11.5-15.5); WBC 8.1 k/uL (3.8-10.6)
[2023-06-26 18:36] LABS: African American GFR (CKD) 68 (>60 ml/min/1.73 sqM); Anion Gap 7 mmol/L; Blood Urea Nitrogen 35 mg/dL (9-20); Calcium 9.4 mg/dL (8.4-10.2); Carbon Dioxide 35 mmol/L (22-30); Chloride 100 mmol/L (98-107); Glucose 121 mg/dL (74-99); Non-African American GFR(CKD) 59 (>60 ml/min/1.73 sqM); Sodium 142 mmol/L (137-145)
[2023-06-26 18:41] LABS: Potassium 4.1 mmol/L (3.5-5.1)
== END ==
LOC: CATHEP 13:00
PROVIDERS: ATTEND Internal Medicine Clinical Cardiac Electrophysiology
DX: Q26.0 Congenital stenosis of vena cava (principal); I42.9 Cardiomyopathy, unspecified
CPT/HCPCS: 36005; 75820; 80048; 84443; 85025; 85610; Q9967

== ENCOUNTER → 2023-07-02 | Outpatient (CLI) | payer MEDICARE ==
[2023-07-02 09:15] VITALS: BP 96/60; PULSE 68; RESP 15; TEMP 98.4
--- NOTE | 2023-07-02 09:33 | P.PAINPG ---
Objective - Vital Signs Vital signs: Intake & Output 07/01/23 07/02/23 07/02/23 18:59 06:59 18:59 Weight 68.039 kg PQRS Measure Charge Sheet Comment: HISTORY OF PRESENT ILLNESS: An 78 yr old wheelchair bound male w at side presents today w severe and chronic LBP x 2 yr secondary to stenosis, DDD, spondylosis and facet arthropathy without myelopathy for evaluation s/p TONNY L4-L5 #1. Pt states he experienced 0% pain relief s/p procedure. Pt states pain level is provoked at 4 /10 in intensity, constant, localized in the lower lumbar spine, predominantly axial, sharp in character w occasional shooting pain towards the RLE. Pain is provoked by walking/ standing for periods of 10 min or more. Pain is alleviated by PT x 3 wks which provoked pain, massage therapy x 6 wks which ended in Mar 2023, chiropractic treatments in 2021, use of a wheelchair for ambulatory assistance, heat, ice, medications, topical, reclining, repositioning and rest. Oswestry axial pain score at 28. Interventional procedures include LESI L4-L5 #1 Medications include [place], Naproxen REVIEW OF ORGAN SYSTEMS: CONSTITUTIONAL: No fevers or chills. No recent weight loss. NEUROLOGICAL: + numbness and tingling along the distal extremities. No seizure disorders or headaches. MUSCULOSKELETAL: + pain PSYCHIATRIC: Denies current depression or suicidal thoughts. Physical Examinations : Constitutional : Cooperative , not in acute distress . Neurologic : Cranial nerve II to XII intact. No focal neurological deficits. Psychiatric : alert & oriented x 3. Matching mood & appropriate affect. Judgment & insight intact. Musculoskeletal : Cervical Spine Motor strength in the deltoid and biceps: Normal right side. Normal Left side Motor strength biceps and the wrist extensors: Normal right side . Normal left side Motor strength in the triceps muscle: Normal right side. Normal left side Deep tendon reflexes: Normal at the biceps. Normal at Brachioradialis. Normal at triceps Vertebral body tenderness to deep palpation over Cervical facet loading test: positive bilaterally Spurling test: positive bilaterally Neck distraction test: positive bilaterally Ana sign: positive bilaterally Lumbar spine Motor strength lower extremities ,thigh and legs 5/5 Right side , 5/5 Left side Deep tendon reflexes : Normal Knee Jerk. Normal Ankle Jerk Vertebral body tenderness over L4 Garcia Test positive Lumbar facet Loading Test: positive Right / positive Left Range of motion of the lumbar spine Flexion 30 degrees, extension 10 degrees Straight Leg Raise test: Left/ Right positive at <30 degrees Jason test: positive right / positive left. Severe tenderness over the Sacroiliac joint on the Right / Left sides Gaenslen test: positive bilaterally Seated flexion test: positive bilaterally. Sacral spine : Severe tenderness over the Sacroiliac joint: right side / left side Range of motion: Flexion of the lumbar spine <60 degrees Range of motion: Extension of the lumbar spine <20 degrees Gaenslen's Test positive Jason test: positive right side / left side Thigh Thrust Test Sacral Thrust Test Imaging: CT noncontrast of the lumbar spine from 04/12/23 reviewed Assessment/ Plan : Lumbar stenosis, lumbar DDD Recommendation of home TENS unit device. Script provided. Disinterested in additional injections as he bruises too easily while on Coumadin. All questions answered. I have spent greater than 30 minutes on patient care today. Dr Copeland was available by phone for the evaluation of this patient. The time was used to review the medical records including relevant urine studies and Prescription history (MAPs), review of the available imaging, evaluation and examination of the patient, coordination of care with the medical staff and if applicable referring physicians, as well as creation of the medical record PQRS Narrative: Smoking Status Former smoker Hx Alcohol Use (MH) No Home Medications: Ambulatory Orders Warfarin [Coumadin] 1 mg PO QAM 01/14/18 Furosemide [Lasix] 20 mg PO QAM 02/23/19 Melatonin 10 mg PO HS PRN 02/23/19 Metoprolol Succinate (ER) [Toprol Xl] 50 mg PO QAM 09/26/21 Naproxen Sodium [Aleve] 220 mg PO DIRECTED PRN 09/26/21 HYDROcodone/APAP 7.5-325MG [Keo 7.5-325] 1 tab PO Q6H PRN 05/25/23 Amiodarone [Cordarone] 200 mg PO QAM 06/20/23 Gabapentin 300 mg PO TID 06/20/23 Controlled Substance Measures - Controlled Substance Measures Is patient prescribed a controlled substance at discharge?: No
== END ==
LOC: PNWHC3 08:46
PROVIDERS: ATTEND Specialist
DX: M51.36 Other intervertebral disc degeneration, lumbar region (principal); M48.061 Spinal stenosis, lumbar region without neurogenic claudication; Z87.891 Personal history of nicotine dependence
CPT/HCPCS: 99211